=== PATIENT | male | born 1970 | race African-American/Black ===

== ENCOUNTER 2025-02-02 11:51 | Emergency (ER) | payer OTHER, SELFPAY ==
--- NOTE | 2025-02-02 12:09 | ED_ITS ---
HPI - General Adult General Chief complaint: Recheck/Abnormal Lab/Rx Stated complaint: abnormal labs Time Seen by Provider: 02/02/25 13:17 History of Present Illness ED Provider: Maren Bella NP HPI narrative: 54-year-old male medical history significant for diabetes non Friday hemodialysis, this week Friday, Friday, Friday (Holiday schedule), hypertension presents to the ED or abnormal laboratory tests at home. Patient reports that he had dialysis last week it was told that his blood count was low, at 5. He was told to come into the ED for recheck. He denies any chest pain or shortness of breath, abdominal pain, nausea or vomiting, urinary complaints. He does still make urine and denies any issues with this. No fever, chills, recent illnesses. Related Data Home Medications ?Medication ?Instructions ?Recorded ?Confirmed amlodipine 10 mg tablet 1 tab PO DAILY 07/19/21 0611/01 atorvastatin 20 mg tablet 20 tab PO BEDTIME 07/19/21 0 07/19/21 dulaglutide 1.5 mg/0.5 mL 1.5 mg subcut QWEEK 07/19/21 07/19/21 subcutaneous pen injector (Trulicity) empagliflozin 25 mg tablet 1 tab PO DAILY 07/19/2111/01 (Jardiance) flunisolide 25 mcg (0.025 %) nasal 2 spray intranasal DAILY 07/19/21 07/19/21 spray insulin glargine 100 unit/mL (3 20 unit subcut BEDTIME 07/19/21 07/19/21 mL) subcutaneous pen (Lantus Solostar U-100 Insulin) insulin lispro protamine-lispro ea subcut 07/19/21 100 unit/mL (50-50) subcutaneous pen (Humalog Mix 50-50 KwikPen) ondansetron HCl 4 mg tablet 4 mg PO Q8H PRN Nausea And Vomiting 07/19/21 07/19/21 spironolactone 100 mg tablet 1 tab PO DAILY 07/19/21 0 07/19/21 Allergies Allergy/AdvReac Type Severity Reaction Status Date / Time No Known Allergies Allergy Verified 02/02/25 12:12 Review of Systems 2 Review of Systems: ROS is otherwise negative unless mentioned in HPI. [facility] Past Medical History Medical History (Updated 02/02/25 @ 13:37 [facility] Cyclical vomiting CKD (chronic kidney disease) MAGALY (obstructive sleep apnea) DM type 2 (diabetes mellitus, type 2) HTN (hypertension) Surgical History (Updated 07/20/21 @ 09:18 by Jany Gee RN) Hx of eye surgery Status post repair of complex wound Physical Exam ED Exam Exam: Nursing notes and vital signs reviewed. Constitutional: Well-appearing, NAD. Alert. Oriented X3. Eyes: EOMI. ENT: Pharynx normal. Neck: Normal inspection. Neck supple. CVS: Normal heart rate and rhythm. Pulses normal. Respiratory: No respiratory distress. Breath sounds normal. Abdomen: Nondistended. Skin: Skin warm and dry. Normal skin color. Extremities: No lower extremity edema. Neuro: Oriented X 3. No motor deficit. Vital Signs: Vital Signs - 24 hr 02/02/25 12:10 Temperature 98 F Pulse Rate 87 Respiratory Rate 16 Blood Pressure 146/67 H Pulse Oximetry 98 Oxygen Delivery Method Room Air BMI result Body Mass Index 31.7 Course Course Course Narrative: This is a rapid medical exam performed by Hi Fu NP: Additional HPI, ROS, PE not included below will be deferred to primary provider. Patient is a 54y/o M with ESRD on dialysis M// referred by PCP for low H&H. States hgb usually around 8, doctor told him hgb was 5 on labs labs. Denies melena, hematochezia, dizziness or lightheadedness. No hx of requiring transfusion in the past. Plan: labs Medical Decision Making Medical Decision Making MDM Narrative: Upon my assessment, he appears well. I was able to evaluate him in the [facility] chair. He presented for laboratory check of his hemoglobin, as he was told last week that his hemoglobin was 5. He had dialysis this week yesterday (on Friday), and Friday. He typically follows a Friday, Friday, Friday schedule, but is on a holiday schedule this week, and will have dialysis Friday. His hemoglobin here is 8.7, hematocrit is 27.6. He tells me this is around his baseline. His creatinine however is elevated at 8.87, again expected to be high given the setting of CKD, and lack of dialysis as he would have been due tomorrow. There are no significant electrolyte disturbances, therefore there is no indication for any additional workup for management at this time. He has no acute medical complaints. We will proceed with discharge plan with follow up with Nephrology, given return precautions to the ED. Patient agreeable. Differential Diagnosis Differential Diagnoses: The differential diagnosis associated with the presentation includes Electrolyte disturbances, anemia, anemia due to CKD, laboratory air Admission/Observation Consideration of admission/observation: Escalation of care including admission/observation considered (Not indicated) Lab Data MDM Lab Attestation statement: I reviewed the patient's lab results. (Stable H&H.) 02/02/25 12:19 02/02/25 12:19 Labs: Lab Results 02/02/25 Range/Units 12:19 WBC 9.8 (4.8-10.8) X10*3/uL RBC 2.92 L (4.60-5.80) X10*6/uL Hgb 8.7 L (14.0-18.0) g/dl Hct 27.6 L (42.0-52.0) % MCV 94.5 (80.0-98.0) fL MCH 29.8 (27.0-33.0) pg MCHC 31.5 (31.0-36.0) g/dl RDW 16.3 H (11.0-16.0) % Plt Count 264 (160-400) X10*3/uL MPV 9.2 L (9.4-12.4) fL Immature Gran % (Auto) 1.5 H (0.0-0.4) % Neut % (Auto) 62.0 (45-73) % Lymph % (Auto) 24.7 (20-40) % [place] % (Auto) 9.7 (2-11) % Eos % (Auto) 1.5 (0-4) % Baso % (Auto) 0.6 (0-2) % Lymph # (Auto) 2.4 (1.2-4.9) X10*3/uL [place] # (Auto) 1.0 (0.1-1.2) X10*3/uL Eos # (Auto) 0.2 (0.0-0.4) X10*3/uL Baso # (Auto) 0.1 (0.0-0.2) X10*3/uL Abs Immat Gran (auto) 0.15 H (0.00-0.03) X10*3/uL Absolute Neuts (auto) 6.1 (2.0-8.3) x10*3/uL Absolute Nucleated RBC 0.040 H (0.0-0.012) X10*3/uL Nucleated RBC % (auto) 0.4 H (0.0-0.2) /100WBC Sodium 140 (135-145) mmol/L Potassium 4.7 (3.3-5.1) mmol/L Chloride 104 (96-108) mmol/L Carbon Dioxide 25 (22-29) mmol/L Anion Gap 16 (12-20) BUN 61 H (9-16) mg/dL Creatinine 8.87 H* (0.5-1.4) mg/dL Estim Creat Clear Calc 11.9 Estimated GFR 6 Random Glucose 94 (60-115) mg/dL Calcium 8.5 (8.4-10.2) mg/dL Magnesium 1.9 (1.6-2.6) mg/dL Total Bilirubin 0.4 (0.0-1.0) mg/dL AST 22 (5-37) U/L ALT 19 (0-40) U/L Alkaline Phosphatase 108 (39-117) U/L Total Protein 7.9 (6.5-8.0) g/dL Albumin 4.4 (3.5-5.0) g/dL Blood Type B Positive Antibody Screen NEGATIVE External Record Review External record reviewed: Outside ED record Chronic Conditions Patient?s care impacted by: Other (End-stage renal disease) Social Determinants Patient?s care significantly limited by Social Determinants of Health including: Problems related to primary support group Discharge Plan Discharge Clinical Impression: Encounter for laboratory test, Anemia Patient Disposition: Home, Self-Care Instructions: Anemia (ED) Additional Instructions: You were seen here today for evaluation of repeat laboratory testing. Your H&H here is 8.7, and 27.6. This is reassuring. This is not overly anemic, this appears to be your baseline anemia due to chronic kidney disease. Please follow up with your primary care provider within the next week, and your entry level truck driver outpatient. With any worsening complaints at any time, please seek re-evaluation in the ED. Prescriptions: No Action atorvastatin 20 mg tablet 20 tab PO BEDTIME ondansetron HCl [Zofran] 4 mg Tablet 4 mg PO Q8H PRN (Reason: Nausea And Vomiting) spironolactone 100 mg tablet 1 tab PO DAILY amlodipine 10 mg tablet 1 tab PO DAILY flunisolide 25 mcg (0.025 %) spray,non-aerosol 2 spray intranasal DAILY Humalog Mix 50-50 KwikPen 100 unit/mL (50-50) insulin pen subcut insulin glargine [Lantus Solostar U-100 Insulin] 100 unit/mL (3 mL) insulin pen 20 unit subcut BEDTIME Jardiance 25 mg tablet 1 tab PO DAILY Trulicity 1.5 mg/0.5 mL pen injector 1.5 mg subcut QWEEK [place]: [facility] [place]Provider Group, Family Practice] Print Language: Pashto
[2025-02-02 12:10] VITALS: BP 146/67; PULSE 87; RESP 16; TEMP 36.6; O2SAT 98; BMI 31.7
[2025-02-02 12:23] LABS: MANUAL DIFF FLAG NO
[2025-02-02 12:25] LABS: Hematocrit 27.6 % (42.0-52.0); Hemoglobin 8.7 g/dl (14.0-18.0); Imm Gran Abs Auto 0.15 X10*3/uL (0.00-0.03); Imm Gran Pct Auto 1.5 % (0.0-0.4); Lymphocytes Absolute Auto 2.4 X10*3/uL (1.2-4.9); Mean Corpuscular HGB Conc 31.5 g/dl (31.0-36.0); Mean Corpuscular Hemoglobin 29.8 pg (27.0-33.0); Mean Corpuscular Volume 94.5 fL (80.0-98.0); NRBC Abs Auto 0.040 X10*3/uL (0.0-0.012); NRBC Pct Auto 0.4 /100WBC (0.0-0.2); Platelet Count 264 X10*3/uL (160-400); Red Blood Count 2.92 X10*6/uL (4.60-5.80); White Blood Count 9.8 X10*3/uL (4.8-10.8)
[2025-02-02 12:47] LABS: Alanine Aminotransferase 19 U/L (0-40); Albumin Level 4.4 g/dL (3.5-5.0); Alkaline Phosphatase 108 U/L (39-117); Anion Gap 16 (12-20); Aspartate Amino Transferase 22 U/L (5-37); Blood Urea Nitrogen 61 mg/dL (9-16); Calcium 8.5 mg/dL (8.4-10.2); Carbon Dioxide 25 mmol/L (22-29); Chloride 104 mmol/L (96-108); Creatinine Clr Calc Pharmacy 11.9; Estimated Glomerular Filt Rate 6; Magnesium 1.9 mg/dL (1.6-2.6); Potassium 4.7 mmol/L (3.3-5.1); Sodium 140 mmol/L (135-145); Total Protein 7.9 g/dL (6.5-8.0)
--- OUTSIDE RECORDS SUMMARY | 2025-02-02 13:40 | XMS_ITS | Data Portability ---
Author Organization [facility], Main Office Address [address] [facility] [address] [place] [phone] Care Team Providers Care Perianesthesia Manager Name Role Phone JAMEE HERNANDEZ OTHER JAYA BROWN Primary Care Provider TRISTON MCQUEEN OTHER Assessment No assessment recorded. Plan of Treatment Reminders Order Date Submit Date Provider Last Modified By Organization Details Last Modified Time Details Appointments None recor ded. Lab hemog lobin A1C, finge rstic k 2015 016 [email or web address] [id number] In-Office Order, Internal Use Only DO Not Attach Compendium DO Not Attach Compendium, Do Not Delete/merge, [id number] 6 04:32:38 CMP, serum or plasm a 2015 016 DBA_PATCH_20 [id number] Not available 6 04:32:23 micro album in, urine 2015 016 DBA_PATCH_20 [id number] Not available 6 04:32:24 lipid panel , serum 2015 016 Not available 6 04:32:18 lipid panel , blood 2015 016 [email or web address] Not available 7 13:03:50 CMP, serum or plasm a 2015 016 [email or web address] Not available 7 13:03:50 lipid panel , serum 2015 016 [email or web address] Not available 7 10:04:22 hemog lobin A1C, finge rstic k 2015 016 DBA_PATCH_[email or web address] [id number] In-Office Order, Internal Use Only DO Not Attach Compendium DO Not Attach Compendium, Do Not Delete/merge, [id number] 6 04:32:07 Referral ortho pedic refer ral - L. foot injur y with 40 lbs weigh t. Minim al ROM, ? ligam ent injur y , ? misse d fract ure. 2015 016 DBA_PATCH_20 [id number] [facility] (Leeroy Hdez), [address], [place], [address], 6 04:32:[address]/di etiti an refer ral - Uncon troll ed diabe suzanne and Obesi ty. PT. needs to see nutri onist . 2015 016 DBA_PATCH_20 [id number] [facility], [address], [place], [address], 6 04:32:22 Procedures None recor ded. Surgeries None recor ded. Imaging None recor ded. Medication Orders Touje o SoloS tar U-300 Insul in 300 unit/ mL (1.5 mL) subcu taneo us pen 2015 016 DBA_PATCH_20 [id number] [facility], [address], [place], [id number], 6 04:32:37 lisin opril 10 mg table t 2015 016 DBA_PATCH_20 [id number] [facility] #52333, [address], [place], [id number], 6 04:32:39 lovas tatin 40 mg table t 2015 016 DBA_PATCH_20 [id number] [facility] #34781, [address], [place], [id number], 6 04:32:12 Touje o SoloS tar U-300 Insul in 300 unit/ mL (1.5 mL) subcu taneo us pen 2015 016 DBA_PATCH_20 [id number] [facility] #69076, [address], [place], [id number], 6 04:32:12 OneTo uch Verio test strip s 2015 016 DBA_PATCH_20 [id number] [facility] #85154, [address], [place], [id number], 6 04:32:09 Apidr a SoloS tar U-100 Insul in 100 unit/ mL [facility] 2015 016 [email or web address] [facility] #42805, [address], [place], [id number], 6 10:46:21 Touje o SoloS tar U-300 Insul in 300 unit/ mL (1.5 mL) subcu [facility] pen 2015 016 [email or web address] [facility] #76278, [address], [place], [id number], 6 16:43:52 Augme ntin 875 mg-12 5 mg table t 2015 016 [email or web address] [facility] #43931, [address], [place], [id number], 6 11:10:58 Patient Targets Encounter Date Encounter Id Patient Goals Patient Target Last Modified By Organization Details Last Modified Time 12/18/2015 [id number] Microalbumin/Cr eatinine Ratio yearly Not available Not available Not available Blood Pressure 140 / 90 Not available Not available Not available Ongoing of Hemoglobin A1C <7 Not available Not available Not available Hemoglobin A1C 2 times per yr Not available Not available Not available LDL Direct <100 Not available Not available Not available Ongoing of Cholesterol, LDL <100 Not available Not available Not available 12/18/2015 [id number] Pt advised and agrees to do moderate exercise (such as walking) for approximately 150 minutes per week; to decrease carbohydrate intake (25 % of total carbohydrates or less); and to monitor blood glucose as directed Will bring meter and/or readings to appointments. Patient preferences and goals incorporated in plan and updated/modifie d as needed to reflect progress toward goal. galilea Not available 12/18/2015 16:51:31 01/17/2016 [id number] Ongoing of Microalbumin/Cr eatinine Ratio yearly Not available Not available Not available Ongoing of Blood Pressure 140 / 90 Not available Not available Not available Ongoing of Hemoglobin A1C 2 times per yr Not available Not available Not available Ongoing of Hemoglobin A1C <7 Not available Not available Not available LDL Direct <100 Not available Not available Not available Ongoing of Cholesterol, LDL <100 Not available Not available Not available 01/17/2016 [id number] Pt advised and agrees to do moderate exercise (such as walking) for approximately 150 minutes per week; to decrease carbohydrate intake (25 % of total carbohydrates or less); and to monitor blood glucose as directed Will bring meter and/or readings to appointments. Patient preferences and goals incorporated in plan and updated/modifie d as needed to reflect progress toward goal. galilea Not available 01/17/2016 12:31:31 Patient Instructions Encounter Date Encounter Id Patient Instructions Last Modified By Organization Details Last Modified Time 06/09/2015 [id number] I have reviewed the note and agree with the assessment and plan of care. galilea Not available 06/09/2015 16:43:52 12/05/2015 [id number] high cholesterol: care instructions [email or web address] Not available 01/27/2016 04:32:05 I have reviewed the note and agree with the assessment and plan of care. wayne Not available 12/05/2015 13:50:59 12/18/2015 [id number] heart-healthy diet: care instructions [email or web address] Not available 01/27/2016 04:32:13 Medications (OTC, herbal therapies, supplements) reviewed and reconciled with patient and or caregiver, including potential side effects, drug interactions, instructions, and the consequences of not taking medication. Reviewed potential barriers to medication adherence, such as side effects from medication or cost of medication. I have reviewed the note and agree with the assessment and plan of care. galilea Not available 12/18/2015 16:52:09 12/25/2015 [id number] I have reviewed the note and agree with the assessment and plan of care. galilea Not available 12/25/2015 14:20:55 01/17/2016 [id number] Medications (OTC, herbal therapies, supplements) reviewed and reconciled with patient and or caregiver, including potential side effects, drug interactions, instructions, and the consequences of not taking medication. Reviewed potential barriers to medication adherence, such as side effects from medication or cost of medication. I have reviewed the note and agree with the assessment and plan of care. galilea Not available 01/17/2016 12:31:53 Reason for Referral Family Practitioner/dietitian Refer ral for Body mass index 30+ - obesity Uncontrolled diabetes and Obesity. PT. needs to see nutrionist. Referring Physician: Alejandra Damon, Internal Medicine, Encounter Date: 12/18/2015 Orthopedic Referral for [facility] of foot L. foot injury with 40 lbs weight. Minimal ROM, ? ligament injury , ? missed fracture. Referring Physician: Alejandra Damon, Internal Medicine, Encounter Date: 12/25/2015 Results Created Date Observation Date Name Description Value Unit Range Abnormal Flag Note LastModifiedBy Organization Detail LastModifiedTime 01/17/20 16 01/17/2016 hemog lobin A1C, fingluzma rstic k HA1C 10.4 % 4-6 Not Available In-Office Order Internal Use Only DO Not Attach Compendium DO Not Attach Compendium, Do Not Delete/merge, [id number] 01/17/2016 09:06:49 12/05/19 16 12/05/2015 hemog lobin A1C, fingluzma rstic k HA1C 12.2 % 4-6 Not Available In-Office Order Internal Use Only DO Not Attach Compendium DO Not Attach Compendium, Do Not Delete/merge, [id number] 12/05/2015 11:13:20 12/18/19 16 12/18/2015 CMP, serum or plasm a glucose 165 mg/dL (70-99 ) high Not Available [facility] (Centralized Electronic Ordering - All Locations) Patient Can Go To The Location Of Their Choice, 12/18/2015 17:18:50 12/18/19 16 12/18/2015 CMP, serum or plasm a BUN 10 mg/dL (6-20) Not Available [facility] (Centralized Electronic Ordering - All Locations) Patient Can Go To The Location Of Their Choice, 12/18/2015 17:18:50 12/18/19 16 12/18/2015 CMP, serum or plasm a creatinine 0.9 mg/dL (0.7-1 .2) Not Available [facility] (Centralized Electronic Ordering - All Locations) Patient Can Go To The Location Of Their Choice, 12/18/2015 17:18:50 12/18/1912/18/2015 CMP, serum or plasm a sodium 142 mmol/ L (133-1 45) Not Available [facility] (Centralized Electronic Ordering - All Locations) Patient Can Go To The Location Of Their Choice, 12/18/2015 17:18:50 12/18/1912/18/2015 CMP, serum or plasm a potassium 4.7 mmol/ L (3.6-5 .2) Not Available [facility] (Centralized Electronic Ordering - All Locations) Patient Can Go To The Location Of Their Choice, 12/18/2015 17:18:50 12/18/19 16 12/18/2015 CMP, serum or plasm a chloride 100 mmol/ L (98-10 7) Not Available [facility] (Centralized Electronic Ordering - All Locations) Patient Can Go To The Location Of Their Choice, 12/18/2015 17:18:50 12/18/19 16 12/18/2015 CMP, serum or plasm a bicarbonate 27 mmol/ L (22-29 ) Not Available [facility] (Centralized Electronic Ordering - All Locations) Patient Can Go To The Location Of Their Choice, 12/18/2015 17:18:50 12/18/1912/18/2015 CMP, serum or plasm a anion gap 15 (4-17) Not Available [facility] (Centralized Electronic Ordering - All Locations) Patient Can Go To The Location Of Their Choice, 12/18/2015 17:18:50 12/18/19 16 12/18/2015 CMP, serum or plasm a albumin 4.0 gm/dL (3.4-4 .8) Not Available [facility] (Centralized Electronic Ordering - All Locations) Patient Can Go To The Location Of Their Choice, 12/18/2015 17:18:50 12/18/1912/18/2015 CMP, serum or plasm a calcium 9.6 mg/dL (8.6-1 0.5) Not Available [facility] (Centralized Electronic Ordering - All Locations) Patient Can Go To The Location Of Their Choice, 12/18/2015 17:18:50 12/18/19 16 12/18/2015 CMP, serum or plasm a bilirubin,to keith 0.3 mg/dL (0-1.2 ) Not Available [facility] (Centralized Electronic Ordering - All Locations) Patient Can Go To The Location Of Their Choice, 12/18/2015 17:18:50 12/18/1912/18/2015 CMP, serum or plasm a total protein 7.2 gm/dL (6.2-8 .2) Not Available [facility] (Centralized Electronic Ordering - All Locations) Patient Can Go To The Location Of Their Choice, 12/18/2015 17:18:50 12/18/19 16 12/18/2015 CMP, serum or plasm a Ag ratio 1.3 Not Available [facility] (Centralized Electronic Ordering - All Locations) Patient Can Go To The Location Of Their Choice, 12/18/2015 17:18:50 12/18/19 16 12/18/2015 CMP, serum or plasm a AST 17 U/L (0-38) Not Available [facility] (Centralized Electronic Ordering - All Locations) Patient Can Go To The Location Of Their Choice, 12/18/2015 17:18:50 12/18/1912/18/2015 CMP, serum or plasm a alk phos 119 U/L (40-12 9) Not Available [facility] (Centralized Electronic Ordering - All Locations) Patient Can Go To The Location Of Their Choice, 12/18/2015 17:18:50 12/18/19 16 12/18/2015 CMP, serum or plasm a ALT 19 U/L (0-41) Not Available [facility] (Centralized Electronic Ordering - All Locations) Patient Can Go To The Location Of Their Choice, 12/18/2015 17:18:50 12/18/19 16 12/18/2015 CMP, serum or plasm a est GFR non 103 mL/mi n/1.7 3_M2 Effec tive Augus t 2015, [facility] have seng ed the equat ion used to calcu late creat inine based estim ated glome rular filtr ation rate (eGFR ) from the Modif icati on of Diet in Renal Disea se (MDRD ) to the Chron ic Kidne y Disea se Epide miolo gy Colla borat ion (CKD- EPI). With the use of CKD-E PI equat ion, eGFR value s over 60 mL/mi n/1.7 3 m2 are repor monica and eGFR is calcu lated for patie nts > EQ 18 years old. The CKD-E PI creat inine equat ion has not been valid ated in child kranthi (<18 years ), pregn ant women , in some racia l or ethni c subgr oups other than [facility] and Afric an Ameri cans. Not Available [facility] (Centralized Electronic Ordering - All Locations) Patient Can Go To The Location Of Their Choice, [id number] 12/18/2015 17:18:50 12/18/19 16 12/18/2015 CMP, serum or plasm a est GFR 119 mL/mi n/1.7 3_M2 Effec tive Augus t 2015, [facility], [facility] and [facility] have seng degroot the equat ion used to calcu late creat inine based estim ated glome rular filtr ation rate (eGFR ) from the Modif icati on of Diet in Renal Disea se (MDRD ) to the Chron ic Kidne y Disea se Epide miolo gy Colla borat ion (CKD- EPI). With the use of CKD-E PI equat ion, eGFR value s over 60 mL/mi n/1.7 3 m2 are repor moniac and eGFR is calcu lated for patie nts > EQ 18 years old. The CKD-E PI creat inine equat ion has not been valid ated in child kranthi (<18 years ), pregn ant women , in some racia l or ethni c subgr oups other than Gabriella cabrera and Afric an Andreaeri cans. Not Available [facility] (Centralized Electronic Ordering - All Locations) Patient Can Go To The Location Of Their Choice, [id number] 12/18/2015 17:18:50 12/18/19 16 12/18/2015 lipid panel , serum cholesterol, total 182 mg/dL (<200) Not Available [facility] (Centralized Electronic Ordering - All Locations) Patient Can Go To The Location Of Their Choice, [id number] 12/18/2015 17:18:51 12/18/19 16 12/18/2015 lipid panel , serum triglyceride 65 mg/dL (<150) Not Available [facility] (Centralized Electronic Ordering - All Locations) Patient Can Go To The Location Of Their Choice, [id number] 12/18/2015 17:18:51 12/18/19 16 12/18/2015 lipid panel , serum HDL chol 45 mg/dL (>39) Not Available [facility] (Centralized Electronic Ordering - All Locations) Patient Can Go To The Location Of Their Choice, [id number] 12/18/2015 17:18:51 12/18/19 16 12/18/2015 lipid panel , serum LDL cholesterol, calculated 124 mg/dL (0-130 ) Not Available [facility] (Centralized Electronic Ordering - All Locations) Patient Can Go To The Location Of Their Choice, [id number] 12/18/2015 17:18:51 12/18/19 16 12/18/2015 lipid panel , serum non HDL cholesterol (calc) 137 mg/dL (<160) Not Available [facility] (Centralized Electronic Ordering - All Locations) Patient Can Go To The Location Of Their Choice, [id number] 12/18/2015 17:18:51 12/18/19 16 12/18/2015 micro album in, urine micro-albumi n 301.3 mg/L (0-20) high Not Available [facility] (Centralized Electronic Ordering - All Locations) Patient Can Go To The Location Of Their Choice, [id number] 12/18/2015 19:05:06 12/18/19 16 12/18/2015 micro album in, urine malb/creat ratio 151.3 mg/gm (0-20) high Not Available [facility] (Centralized Electronic Ordering - All Locations) Patient Can Go To The Location Of Their Choice, [id number] 12/18/2015 19:05:06 12/18/19 16 12/18/2015 micro album in, urine urine creat for micro albumin 199.2 mg/dL Not Available [facility] (Centralized Electronic Ordering - All Locations) Patient Can Go To The Location Of Their Choice, [id number] 12/18/2015 19:05:06 12/25/19 16 12/14/2015 XR, foot, 3 or more view No observ ation record ed. [facility] [address], [place], [address], 12/27/2015 13:13:08 06/26/19 24 06/26/2023 inter venti onal radio logy perma nent dialy sis vijay ter place ment (PROC ) No observ ation record ed. [facility] [address] [place] [address], [place], [address], 06/27/2023 11:07:53 Result Notes None recorded. Problems Name Problem SNOMED Code Status Onset Date Resolution Date Notes Provider Name and Address Organization Details Recorded Time Type 2 diabetes mellitus 71873033 Completed 04/29/2014 Alejandra Damon PA-C [address] [facility] [address], [place], [address], [facility] 6 15:21:11 Body mass index 30+ - obesity 231876493 Active Alejandra Damon PA-C [address] [facility] [address], [place], [address], [facility] 6 15:21:12 Diabetic peripher al neuropat hy 540626010 Active Alejandra SCHILLING-Dina [address] 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 had transplan t OS Alejandra Damon PA-C [address] [facility] [address], [place], [address], [facility] 6 15:21:12 Flatulen ce symptom 638582202 Completed 12/18/2015 Bettina esquivel [facility] 6 10:29:49 Type 2 diabetes mellitus 81176659 Active Alejandra Damon PA-C [address], [facility] [place], [address], [facility] 6 15:21:11 Acute vomiting 56401059 Completed 12/18/2015 Bettina esquivel [facility] 6 10:29:36 Onychomy cosis 826255695 Active Alejandra Damon PA-C [address], [place], [address], [facility] 6 15:21:11 Neuropat hy due to diabetes mellitus 414429970 Active Alejandra Damon PA-C [address], [place], [address], [facility] 6 15:21:11 Hammer toe 709493662 Active Alejandra Damon PA-C [address], [facility] [place], [address], [facility] 6 15:21:12 Diarrhea 85111207 Completed 12/18/2015 Bettina esquivel [facility] 6 10:29:55 Microalb uminuric diabetic nephropa thy 450251036 Active Alejandra Damon PA-C [address], [place], [address], [facility] 6 15:21:11 Otitis media 86839990 Completed 12/18/2015 Bettina esquivel [facility] 6 10:30:00 Uncontro lled type 2 diabetes mellitus 228612550 Active Alejandra Damon PA-C [address], [place], [address], [facility] 6 10:04:54 Active or passive immuniza tion Completed 201208/24/2013 RECORDED 3 1:52PM BY JAYA BROWN MD, OFFICE VISIT Alejandranavya Damon [facility] [address] [facility] [address], [place], [address], [facility] 6 15:21:12 Active or passive immuniza tion Completed 201209/16/2013 RECORDED 3 1:52PM BY JAYA BROWN MD, OFFICE VISIT Alejandra Damon [address], [place], [address], [facility] 6 15:21:12 Active or passive immuniza tion Completed 201209/17/2013 RECORDED 3 1:52PM BY JAYA BROWN MD, OFFICE VISIT Alejandrayelena Damon [facility] [address] [place] [address] [address], [place], [address], [facility] 6 15:21:12 Adult health examinat ion Completed 201208/24/2013 IMPRESSIO N: WILL UPDATE IMMUNIZAT ION STATUS AND SCREEN BASED ON RISK FACTORS. REGULAR DENTAL CARE AND SEATBELT USE ADVISED. DISTRACTE D DRIVING DISCUSSED . NO INDICATIO N FOR COLON OR PROSTATE CANCER SCREENING .; RECORDED 3 4:23PM BY CHU BURGOS MA, ISSACATIO N/ADDENDU M Alejandra SCHILLING [address] [facility] [address], [place], [address], [facility] 6 15:21:12 Follow-u p encounte r Completed 201208/24/2013 RECORDED 3 4:23PM BY CHU BURGOS MA, ANNOTATIO N/ADDENDU Carmela Damon PA-C [address], [place], [address], [facility] 6 15:21:12 Adult health examinat ion Completed 201209/16/2013 IMPRESSIO N: WILL UPDATE IMMUNIZAT ION STATUS AND SCREEN BASED ON RISK FACTORS. REGULAR DENTAL CARE AND SEATBELT USE ADVISED. DISTRACTE D DRIVING DISCUSSED . NO INDICATIO N FOR COLON OR PROSTATE CANCER SCREENING .; RECORDED 3 4:23PM BY CHU BURGOS MA, BRIE N/ADDENDU Carmela Damon PA-C [address], [place], [address], [facility] 6 15:21:12 Follow-u p encounte r Completed 201209/16/2013 RECORDED 3 4:23PM BY CHU BURGOS MA, BRIE N/SAADIAENDU Carmela Damon PA-C [address], [place], [address], [facility] 6 15:21:12 Adult health examinat ion Completed 201209/17/2013 IMPRESSIO N: WILL UPDATE IMMUNIZAT ION STATUS AND SCREEN BASED ON RISK FACTORS. REGULAR DENTAL CARE AND SEATBELT USE ADVISED. DISTRACTE D DRIVING DISCUSSED . NO INDICATIO N FOR COLON OR PROSTATE CANCER SCREENING .; RECORDED 3 4:23PM BY CHU BURGOS MA, BRIE N/ADDENDU Carmela Schulzden PA-C [address], [place], [address], [facility] 6 15:21:12 Follow-u p encounte r Completed 201209/17/2013 RECORDED 3 4:23PM BY CHU BURGOS MA, DALEO N/ADDENDU Carmela Damon PA-C [address], [place], [address], [facility] 6 15:21:12 Uncontro lled type 2 diabetes mellitus 627789177 Completed 201208/24/2013 RECORDED 3 10:39AM BY NANNETTE SARABIA MA, DALEO N/ADDENDU Carmela Damon PA-C [address], [place], [address], [facility] 6 15:21:11 Uncontro lled type 2 diabetes mellitus 886088526 Completed 201209/16/2013 RECORDED 3 10:39AM BY NANNETTE SARABIA MA, BRIE N/ADDENDU Carmela Damon PA-C [address], [place], [address], [facility] 6 15:21:11 Uncontro lled type 2 diabetes mellitus 029143837 Completed 201209/17/2013 RECORDED 3 10:39AM BY NANNETTE SARABIA MA, BRIE N/SAADIAENDU Carmela SCHILLING-C [address], [place], [address], [facility] 6 15:21:11 Renewal of prescrip tion Completed 201308/24/2013 RECORDED 4 8:15AM BY NANNETTE SARABIA MA, DALEO N/ADDENDU Carmela Damon PA-C [address], [place], [address], [facility] 6 15:21:12 Patient status finding [id number] Completed 201308/24/2013 RECORDED 4 8:15AM BY NANNETTE SARABIA MA, BRIE N/ADDENDU Carmela Damon PA-C [address], [place], [address], [facility] 6 15:21:12 Immuniza tion refused Completed 201308/24/2013 RECORDED 4 8:15AM BY NANNETTE SARABIA MA, BRIE Ann/[facility] 6 10:29:42 Administ ration of diphther ia and tetanus vaccine Completed 201308/24/2013 RECORDED 4 8:15AM BY NANNETTE SARABIA MA, BRIE Ann/JEREL SCHILLING-C [address], [place], [address], [facility] 6 15:21:12 Renewal of prescrip tion Completed 201309/16/2013 RECORDED 4 8:15AM BY NANNETTE SARABIA MA, BRIE Ann/JEREL SCHILLING-C [address], [place], [address], [facility] 6 15:21:12 Administ ration of diphther ia and tetanus vaccine Completed 201309/16/2013 RECORDED 4 8:15AM BY NANNETTE SARABIA MA, BRIE Ann/JEREL SCHILLING-C [address], [place], [address], [facility] 6 15:21:12 Renewal of prescrip tion Completed 201309/17/2013 RECORDED 4 8:15AM BY NANNETTE SARABIA MA, BRIE Ann/JEREL SCHILLING-C [address], [place], [address], [facility] 6 15:21:12 Administ ration of diphther ia and tetanus vaccine Completed 201309/17/2013 RECORDED 4 8:15AM BY NANNETTE SARABIA MA, ANNOTATIO N/JEREL Damon [facility] [address] [facility] [address], [facility] [place], [address], [facility] 6 15:21:12 Type 2 diabetes mellitus without complica tion 611336603 Completed 201304/28/2014 RECORDED 4 9:57AM BY NANNETTE SARABIA MA, OFFICE VISIT Alejandra Damon [facility] [address] [facility] [address], [place], [address], [facility] 6 15:21:11 Disorder of nervous system due to type 2 diabetes mellitus 954275908 Active 2013 RECORDED 4 9:57AM BY NANNETTE SARABIA MA, OFFICE VISIT Alejandra SCHILLING [address] [facility] [address], [facility] [place], [address], [facility] 6 15:21:11 Diarrhea 24231137 Completed 201302/25/2014 IMPRESSIO N: PT ALREADY TRIED HOLDING METFORMIN (INADVERT ANTLY) AND NOTICED NO CHANGE IN SX'S. SEEMS TO HAVE SOME CORRELATI ON TO DAIRY INTAKE. HE WILL TRY ELIMINATI ON DIET/LACT AID PILLS AND CALL IF PERSISTAN T/WORSE.; RECORDED 4 10:41AM BY JAYA BROWN MD, OFFICE VISIT [facility] 10:29[facility] Impotenc e of organic origin Active 2013 IMPRESSIO N: MINIMAL SYMPTOMS IMPROVEME NT WITH VIAGRA, SEE IF DIFFERENT AGENT IS MORE EFFECTIVE .; RECORDED 4 10:42AM BY JAYA BROWN MD, OFFICE VISIT Alejandra Damon PA-C [address] [facility] [address], [place], [address], [facility] 6 15:21:12 Pure hypercho lesterol emia [id number] Active 2013 IMPRESSIO N: LDL NOT AT GOAL BUT MINIMALLY ELEVATED. WILL START LOW DOSE STATIN TO HELP REDUCE CV RISK.; RECORDED 4 10:44AM BY JAYA BROWN MD, OFFICE VISIT Alejandra Damon PA-C [address], [place], [address], [facility] 6 15:21:12 Patient status finding [id number] Completed 201304/28/2014 RECORDED 4 10:00AM BY NANNETTE SARABIA MA, OFFICE VISIT Alejandra Damon PA-C [address] [facility] [address], [place], [address], [facility] 6 15:21:12 Immuniza tion refused Completed 201312/18/2015 RECORDED 4 10:00AM BY NANNETTE ASRABIA MA, OFFICE VISIT Bettina Sahu [facility], [facility] 6 10:29:42 Primary open angle glaucoma 91352620 Active 2015 Jaya Brown MD [address], [place], [address], [facility] 6 13:32:57 Nuclear cataract 64918763 Active 2015 Jaya Brown MD [address], [place], [address], [facility] 6 13:33:24 Osteoart hritis of hip 570975186 Active 2016 Jaya Brown MD [address], [place], [address], [facility] 7 22:05:05 Problem Notes None recorded. Procedures Surgical History Date Name Laterality Status Provider Name and Address Organization Details Recorded Time Appendectomy completed Nannette Sarabia MA [facility] 02/25/2014 11:12:57 Corneal transplant completed Torin Ryan [facility] 04/29/2014 16:17:51 Imaging Results None recorded. Procedure Notes None recorded. Medical Equipment None Reported. Allergies No known drug allergies Medications Name Sig Start Date Stop Date Status Note LastModified by Organization Details LastModified Time amoxicill in 500 mg capsule 12/04 completed Not Available Not Available Not Available latanopro st 0.005 % eye drops active Not Available Not Available Not Available metformin 500 mg tablet take 1 tablet by mouth twice a day 07/14 completed dose titrated Not Available Not Available Not Available hydrocodo ne 5 mg-acetam inophen 325 mg tablet 12/04 completed Not Available Not Available Not Available lovastati n 40 mg tablet Take 1 tablet every day by oral route for 90 days. 2015 active Not Available Not Available Not Avai lable lovastati n 10 mg tablet Take 1 tablet every day by oral route as directed for 30 days. 12/17 completed Not Available Not Available Not Available sildenafi l 100 mg tablet DAILY NEEDED 05/17 completed RECORDED 05/18/19 14 10:27AM BY JAYA Ozuna MD, OFFICE VISIT; Not Available Not Available Not Available prednisol one acetate 1 % eye drops,shaquille pension Instill 1 drop every day by ophthalm ic route as directed for 21 days. active Not Available Not Available No t Available metoclopr amide 5 mg tablet Take 1 tablet 3 times a day by oral route as needed for 10 days. active Not Available Not Available No t Available metformin 1,000 mg tablet Take 1 tablet twice a day by oral route for 30 days. 01/13 completed diarrhea Not Available Not Available Not Available lisinopri l 10 mg tablet Take 1 tablet every day by oral route for 90 days. active Not Available Not Available No t Available Guaifenes in AC 10 mg-100 mg/5 mL oral liquid 12/04 completed Not Available Not Available Not Available omeprazol e 20 mg capsule,d elayed release Take 1 capsule by mouth daily 12/04 completed Not Available Not Available Not Available dorzolami de 22.3 mg-timolo l 6.8 mg/mL eye drops active Not Available Not Available Not Available ibuprofen 600 mg tablet active Not Available Not Available Not Available timolol maleate 0.5 % eye drops Apply 1 drop every day by ophthalm ic route as directed for 30 days. active Not Available Not Available No t Available ondansetr on 4 mg disintegr ating tablet EVERY FOUR HOURS, NEEDED active Not Available Not Available No t Available metformin ER 500 mg tablet,ex tended release 24 hr Take 2 tablets every day by oral route as directed for 30 days. 12/04 completed Not Available Not Available Not Available amoxicill in 875 mg-potass ium clavulana te 125 mg tablet Take 1 tablet every 12 hours by oral route for 7 days. 12/04 completed Not Available Not Available Not Available tobramyci n 0.3 %-dexamet hasone 0.1 % eye drops,shaquille pension Instill 1 drop every day by ophthalm ic route as directed for 12 days. 12/04 completed Not Available Not Available Not Available Humulin N Pen 100 unit/mL subcutane ous syringe AT BEDTIME, SEE TITRATIO N BELOW 2013 active RECORDED 05/18/19 14 10:27AM BY JAYA Ozuna MD, OFFICE VISIT;IN CREASE DOSE BY 5 UNITS EVERY 3 DAYS FOR FASTING BLOOD SUGARS GREATER THAN 120. Not Available Not Available Not Available tadalafil 20 mg tablet DAILY NEEDED 2013 active RECORDED 05/18/19 14 10:26AM BY JAYA Ozuna MD, OFFICE VISIT; Not Available Not Available Not Available Lactic Acid E 10 % topical cream active Not Available Not Available Not Available Aspirin EC take 1 tab daily po 2013 active RECORDED 05/18/19 14 10:27AM BY JAYA Ozuna MD, OFFICE VISIT; Not Available Not Available Not Available FreeStyle Lancets THREE TIMES DAILY, NEEDED 11/27 completed RECORDED 12/18/19 13 1:20PM BY CHU CASTREJON MA, MEDICATI ON AUTO-NATY CTIVATIO N;DX: 250.02 Not Available Not Available Not Available BD Ultra-Fin e Short Pen Needle 31 gauge x 5/16 active Not Available Not Available Not Available ProAir HFA 90 mcg/actua tion aerosol inhaler active Not Available Not Available Not Available metformin ER 500 mg 24 hr tablet,ex tended release (gastric retention ) TWO TIMES DAILY active RECORDED 09/22/19 13 2:08PM BY JAYA Ozuna MD, ANNOTATI ON/KEY DUM; Not Available Not Available Not Available Travatan Z 0.004 % eye drops Instill 1 drop every day by ophthalm ic route as directed for 30 days. 12/04 completed Not Available Not Available Not Available FreeStyle Lite Strips Take 1 strip 4 times a day by miscell. route as directed for 30 days. active Not Available Not Available No t Available FreeStyle Lite Strips THREE TIMES DAILY, NEEDED 2012 active RECORDED 12/22/19 13 1:27PM BY JAYA Ozuna MD, REFILL REQUEST; DX: 250.02 Not Available Not Available Not Available FreeStyle [place] Lite kit DAILY active Not Available Not Available Not Available Apidra SoloStar U-100 Insulin 100 unit/mL subcutane ous pen Inject 15 units 3 times a day by subcutan eous route for 90 days. 01/16 completed Not Available Not Available Not Available OneTouch Delica Lancets 33 gauge Take 1 each 4 times a day by miscell. route as directed for 25 days. active Not Available Not Available No t Available BD Ultra-Fin e Mamie Pen Needle 32 gauge x 5/32 Take 1 needle 4 times a day by miscell. route as directed for 25 days. active Not Available Not Available No t Available Humulin N NPH U-100 Insulin KwikPen 100 unit/mL (3 mL) subcutane ous Inject 15 units twice a day by sub-q route as directed for 90 days. 12/04 completed Not Available Not Available Not Available Toujeo SoloStar U-300 Insulin 300 unit/mL (1.5 mL) subcutane ous pen 60 u daily active Not Available Not Available No t Available Humalog KwikPen U-200 Insulin 200 unit/mL (3 mL) subcutane ous Inject 20 units 3 times a day by subcutan eous route for 90 days. active Not Available Not Available No t Available Vitals Date Recorded Body weight Body mass index (BMI) Body height Oxygen saturation Body temperature Heart rate Systolic And Diastolic Provider Name and Address Organization Details Last Updated DateTime 6 267323. 050881 g 33.5 kg/m2 174.625 cm 98 % 98.5 [degF] 94 /min 135/85 mm[Hg] Bettina Sahu [facility] 6 10:48:25 Date Recorded Body height Body weight Body mass index (BMI) Heart rate Oxygen saturation Body temperature Systolic And Diastolic Provider Name and Address Organization Details Last Updated DateTime 6 174.625 cm 618605. 83 g 35.3 kg/m2 89 /min 99 % 98.2 [degF] 128/81 mm[Hg] Corinna Joshua [facility] 6 11:08:56 Date Recorded Body height Body weight Body mass index (BMI) Body temperature Oxygen saturation Heart rate Systolic And Diastolic Provider Name and Address Organization Details Last Updated DateTime 6 174.625 cm 217770. 03 g 36.8 kg/m2 97.9 [degF] 97 % 89 /min 133/89 mm[Hg] Bettina Rockwell Raheem [facility] 6 09:29:38 Date Recorded Body height Body weight Body mass index (BMI) Body temperature Oxygen saturation Heart rate Systolic And Diastolic Provider Name and Address Organization Details Last Updated DateTime 6 174.63 cm 394807. 03 g 36.8 kg/m2 98.3 [degF] 95 % 99 /min 137/86 mm[Hg] [facility]ina [facility] 6 10:09:50 Date Recorded Body height Body weight Body mass index (BMI) Body temperature Oxygen saturation Heart rate Systolic And Diastolic Provider Name and Address Organization Details Last Updated DateTime 6 174.63 cm 693405. 51 g 36.1 kg/m2 97.5 [degF] 96 % 93 /min 156/97 mm[Hg] Bettina Rockwell [facility] 6 09:08:28 Social History Question Answer Notes LastModified by Organizat ion Details LastModified Time Tobacco Smoking Status Never Smoker Not Available [employer] 12/14/2019 03:36:40 What Is Your Level Of Caffeine Consumption? None [id number] Information not available 12/14/2019 What Type Of Diet Are You Following? REGULAR [id number] Information not available 12/14/2019 Live Alone Or With Others? With Others [email or web address] Information not available 04/29/2014 How Many Children Do You Have? 2 [id number] Information not available 12/14/2019 Sex: Unknown Functional Status Question Answer Note LastModified by Organization D etails LastModified Time What is your level of alcohol consumption? None [id number] Information not available 12/14/2019 Are you currently employed? No [id number] Information not available 12/14/2019 What is your exercise level? Moderate [id number] Information not available 12/14/2019 Mental Status None recorded. Family History Relationship Description Onset Age of this Age Resolved Age Notes LastModified by Organization Details LastModified Time Mother Diabetes mellitus [email or web address] Not available 10:49:59 Medical History Condition Response Coronary Artery Disease N Other N Gout N Kidney Stones N Blood Diseases N Hyperthyroidism N Breast Cancer N mrsa exposure N COPD N Depression N Lung Disease N Hypothyroidism N Defects or Inherited Disease N Developmental or Behavioral Disorders N Breast Problem N Anesthesia Complications N Headaches/Migraines N Varicose Veins N Anxiety Disorder N Muscle, Joint, or Bone Problems N Obesity N Vision or Eye Problems N Arthritis N Head Injury/Concussion N Polyps N Infertility N Mental Disorder N Congenital Anomalies N Acid Reflux (GERD) N Cancer N Stroke N ADHD N Endometriosis N High Cholesterol Y Liver Disease N Fibromyalgia N Headaches N Kidney Disease N Heart Problems N Ear or Hearing Problems N Hospitalizations N Thyroid Problems N GI Problems N Developmental Delay N Acne N Skin Problems N Eating Disorder N Anemia N Constipation N Bladder Problems N Mental Illness N Ovarian Cancer N Diabetes Y Bedwetting N Blood Transfusions N Seizures/Epilepsy N Heart Problems/Murmur N Tuberculosis N AIDS/HIV N Congestive Heart Failure (CHF) N Eczema N Diverticulitis N Abuse/Domestic Violence N Allergies N Asthma N Reflux/GERD N Hepatitis N Heart Disease N Pulmonary Embolism N Hypertension N Osteoporosis N Chicken Pox N Autism Spectrum Disorder (ASD) N Immunizations Vaccine Type Date Status Note Provider Nam e and Address Organization Details Recorded Time Td (adult), 2 Lf tetanus toxoid, preservative free, adsorbed 1 completed Not Available [facility] 08/24[facility]2013 13:43:55 Tdap 3 completed Not Available [facility] 08/24/2013 13:43:55 pneumococcal polysaccharide PPV23 5 completed Not Available [facility] 02/27/2019 02:21:42 Past Encounters Encounter ID Performer Location Encounter Start Date Encounter Closed Date Diagnosis/Indication Diagnosis SNOMED-CT Code Diagnosis ICD10 Code Diagnosis IMO Codes Diagnosis Note [id number] autoEComm erce [address] [facility] [place] [address] 09/21/2012 00:00:00 [id number] autoEComm erce [address] [facility] [place] [address] 11/17/2012 00:00:00 [id number] autoEComm erce [address] [facility] [place] [address] 12/21/2012 00:00:00 [id number] autoEComm erce [address] [facility] [place] [address] 05/17/2013 00:00:00 [id number] Jaya Brown MD Main Office [address] [facility] [address] [place] [address] 02/25/2014 11:06:42 02/25/2014 12:08:56 Type 2 diabetes mellitus 75106003 Back on regimen which led to good control in the past. Will reassess numbers. Optho exam utd. Pure hypercholesterolemia 362649470 Will reassess and titrate statin dose to goal LDL <100. Administra tion of pneumococcal vaccine 71089022 [id number] MARIANO Mcbride Main Office [address] [facility] [address] [place] [address] 04/29/2014 09:05:22 04/29/2014 11:15:55 Adult health examination 874294784 Body mass index 30+ - obesity 112652076 Disorder o f nervous system due to type 2 diabetes mellitus 142590849 will recheck his a1c in 1 month. hopefully will see improvemen t from his a1c of 14 off of meds. Impotence of organic origin 237208207 Pure hypercholesterolemia 873621776 Diabetic p eripheral neuropathy 180850090 based on exam only. no pain. podiatry to assess his shoe wear and reduce any risks he may have for complicati ons Flatulence symptom 809092856 trial avoidance of lactose and take lactaid when taking in lactose. try gas-x. also can do a probiotic such as align. if still symptomati c at 2 month f/u, can be reassessed . [id number] Jaya rBown MD Main Office [address] [place] [address] 06/29/2014 11:23:46 06/29/2014 12:15:01 Diabetic peripheral neuropathy 256268512 Pure hypercholesterolemia 042581579 Will reassess and titrate statin dose to goal LDL <100. Flatulence symptom 757910485 Stable on simethicon e and with limiting lactose. Pt states that this symptoms was present even before taking metformin. [id number] MARIANO Bauer Main Office [address] [place] [address] 10/18/2014 12:47:29 10/18/2014 13:20:44 Pre-surgery evaluation 942652083 Low risk for corneal transplant surgery, EKG normal, no blood work necessary, no further work-up necessary. Patient will stop aspirin today, he may resume the day after surgery unless otherwise instructed by Dr. Martinez. Type 2 maria alejandra betes mellitus 51457926 Blood sugars well controlled currently around 120, his last A1C was 12.1 in June, he will have his repeat drawn today. Disorder o f nervous system due to type 2 diabetes mellitus 313727314 [place] 85746833 Right eye, scheduled for corneal transplant right eye with Dr. Martinez 10/26/14 [id number] Jaya Brown MD Main Office [address] [facility] [address] [facility] [place] [address] 01/13/2015 11:26:02 01/13/2015 12:28:00 Pure hypercholesterolemia 596546002 E78.0 Will reassess and titrate statin dose to maintain goal LDL <100. Type 2 maria alejandra betes mellitus 70107755 E11.9 Back on regimen which led to good control in the past, but metformin may be affording diarrhea. Will reassess numbers. Optho exam utd. Diarrhea 08288613 R19.7 Will see if decreasing metformin dose and switching to ER formulatio n mitigate diarrhea. Advised to take med with food. If persistent /worse will refer to GI. [id number] Alejandra Damon PA-C Main Office [address] [facility] [address] [facility] [place] [address] 04/21/2015 12:53:36 04/21/2015 13:59:43 Disorder of nervous system due to type 2 diabetes mellitus 462999254 E11.40 Total time spent teaching and coordinati ng care 45 min. Basic pathophysi ology of type II DM was reviewed. Pt. was instructed on use of One Touch Verio meter and advised to test glucose at home QID; before each main meal and at HS. Goal for am fasting is 80-130, goal for postprandi al glucose is under 180. 1999 kira ADA diet was reviewed and sample menues given to pt,. Pt. was advised to walk daily as he is for atleast 1 hr. See ophthalmol ogist yearly. Meds: D/c Humulin N> Start Toujeo at 35 u daily. Start Apidra SoloStar at 10 u before each main meal. insulin injections were demonstrat ed. PT. shows competence and confidence in injection. Diabetic p eripheral neuropathy 791574221 E11.40 F/u with the folder tier every 3 m. [id number] Alejandra Damon PA-C Main Office [address] [place] [address] 05/05/2015 10:02:25 05/05/2015 11:00:41 Disorder of nervous system due to type 2 diabetes mellitus 036731558 E11.40 Hyperglyce shannan. Increase Toujeo to 45 u daily. Increase Apidra to 25 u TID and titrate up by 2 u every 3 days until premeal readings are under 200s all. Test glucose before meals and at HS. F/u 2 weeks. [id number] Alejandra Damon PA-C Main Office [address] [facility] [address] [facility] [place] [address] 06/09/2015 10:40:21 06/09/2015 11:11:06 Otitis media 63794021 H66.91 Acute R. Otitis Media. Start Augmentin 875-125 BID with food for 7-10 days. F/u at 10 days. OTC Sudafed 60 mg q 6 hrs fro decongesti on and Motrin for pain and inflammati on. Uncontroll ed type 2 diabetes mellitus 685337341 E11.65 Continue TID glucose monitoring and return in 10 days with log for f/u. Continue current insulins. [id number] Alejandra Damon PA-C Main Office [address] [address] 12/05/2015 10:58:38 12/05/2015 11:52:20 Uncontrolled type 2 diabetes mellitus 243547528 E11.65 Hyperglyce shannan and uncontroll ed Type II DM due to noncomplia nce to diet , exercise and medical appointmen ts. Pt. is advised to restart glucose monitoring before each main meal and at HS. Increase Toujeo to 47 u daily and Apidra to 20 u TID and use premeal. Lower total calories and portion size and start exercise activity. Return in 10 days. Pure hypercholesterolemia 966979689 E78.00 restart statin now. Recheck lipids in 6 weeks. Follow low fat diet . WEight loss as discussed. Disorder o f nervous system due to type 2 diabetes mellitus 608767437 E11.40 F/u with the folder tier . Consider Gabapentin . Noncomplia nce with therapeutic regimen 835224945 Z91.19 [id number] Alejandra Damon PA-C Main Office [address] [address] 12/18/2015 09:20:26 12/18/2015 10:10:09 Uncontrolled type 2 diabetes mellitus 039695711 E11.65 Increase Toujeo to 52 u daily. Increase Apidra to 20 u TID. HYpoglycem ia management reviewed. Test glucose 3 times per day. REturn in 4-6 weeks . Diabetic p eripheral neuropathy 101443128 E11.40 F/u with the folder tier every 3 m. Microalbum inuric diabetic nephropathy 202300107 E11.21 Repeat microalbum in. Pt. will need to be started on ACEI if microalbum inuria. Hyperlipidemia 26723028 E78.5 Repeat fasting lipids. Continue low fat diet. Body mass index 30+ - obesity 766237402 Z68.36 [id number] Alejandra Damon PA-C Main Office [address] [facility] [address] [place] [address] 12/25/2015 10:03:29 12/25/2015 10:56:35 Injury of foot 823008306 S99.922A Obtain XRAy results from urgent care. Pt. will be scheduled to see an orthopedis t urgently. Continue LINDSAY wrapping, ice , elevation. Take Ibuprofen 600 mg TID with food. [id number] Alejandra Nelson TREVIÑO Main Office [address] [facility] [address] [place] [address] 01/17/2016 09:03:27 01/17/2016 09:58:40 Disorder of nervous system due to type 2 diabetes mellitus 261859420 E11.40 F/u with the folder tier . Consider Gabapentin . Microalbum inuric diabetic nephropathy 831537329 E11.21 Start Lisinopril at 10 mg daily. Reassess in 6 weeks. Renal diso rder due to type 2 diabetes mellitus 055882170 E11.22 Renal functions assessed recently and are normal. BP will be managed with start of ACEI and repeat microalbum in in 6 weeks.Incr ease Toujeo to 55 u daily. HUmalog lower to 15 u premeal if glucose is 130 or less, otherwise 20 u. Continue working on diet nad weight loss. Hypoglycemia 631935250 E 16.2 insulin adjusted Health Concerns Section Related Observation LastModified by Organization Detai ls LastModified Time None Recorded Concern Status LastModified by Organization Details LastModified Time None Recorded Advance Directives Directive None Recorded Payers Insurance Date Sequence Insurance Name Policy Number Policy Whitehead Covered Member ID Whitehead Member ID Guarantor Name 12/10/2017 1 SAI (PPO) [id number] Rico Murphy [id number] Rico Murphy Notes Date Note Type Note Provider Name and Address Organization Details Recorded Time 06/09/2015 text/html ROS as noted in the HPI 45 year old male with uncontrolled Type II DM c/o 3 week onset of cold symptoms initially and gradual onset of R. ear discomfort and now pain and decreased hearing. NO fever or chills. Some sinus congestion. Glucose readings are somewhat improved , but pt. missed his diabetes f/u. PT. was switched from Humulin N to Toujeo 37 u daily and Apidra 12 u TID. Jaya Brown MD [address] [facility] [address], [place], [address], [facility] 06/09/2015 16:43:54 12/05/2015 text/html Diabetes F/URepo rted by PatientHPIFor context, patient reportshome blood sugar range high,not seeing eye doctor yearly, andnot taking aspirin dailybut reportsno side effects from medications(last alejandra for diabetes was in april. pt. had elevated a1c. lost insurance after and stopped testing. has eye exam scheduled on december 12 adn podiatry alejandra. tomorrow. reports bilateral tingling in toes and balls of both feet. r. arm tingling w/o neck issues and tingling in fingertips. has loose bowels .). For associated symptoms, patient reportsincreased thirst,increased appetite,increased urination,blurred vision, andnumbness of feetbut reportsno weight gain,no weight loss,no dizziness,no sweats,no headaches,no confusion, andno calluses on feet. For review finger sticks, patient reportsfasting: ___,post breakfast: up to 170,post lunch: up to 180, andpost dinner: up to 180(no glucose records, pt. is not monitoring his glucose at home. misplaced meter, did not have insurance for a while.).HgA1c today is 12.2% . Overall diabetic control worsened since last seen in April. Weight is is up by 12 lbs since May. Diet --- not following diabetic portion control. Denies drinking soda or juice. Denies exercising regularly.Meds: stopped his Lovastatin. Toujeo 37 u daily, Apidra 12 u TID , but uses after the meal. BP is stable.ROS as noted in the HPI Carson Matt MD [address] [facility] [address], [place], [address], [facility] 12/07/2015 09:05:08 12/18/2015 text/html Diabetes F/URepo rted by PatientHPIFor context, patient reportshome blood sugar range highandnot checking feet regularlybut reportsseeing eye doctor regularly,taking aspirin daily, andnot missing doses of medications(much improved overall glucose control. pt. is holding her metfromin due to off and on diarrhea and stomach upset for the past 10 days. also has epigastric). For associated symptoms, patient reportsweight gain (? 10 lbs)but reportsno weight loss,no dizziness,no sweats,no headaches,no confusion,no increased thirst,no increased appetite,no increased urination,no blurred vision,no numbness of feet, andno calluses on feet. For review finger sticks, patient reportsfastin-240 87-160,post breakfast: up to 170,pre lunch: 150-200,post lunch: up to 180,pre dinner: 110-216, andpost dinner: up to 180(150-268 after lunch).HgA1c was 12.2% in November. Overall diabetic control is slightly improved since the last visit. Weight is up since the last visit. Diet --- admittedly not so good as of yet. exercies more since the last visit.Meds: Toujeo SoloStar 47 u daily, Apidra 17 u TID. NO random hypoglycemia was documented. Lowest reading was 102 prebreakfast. Pt. reports less pain in his feet since the last visit. Sees return agent airport regularly.ROS as noted in the HPI Jaya Brown MD [address], [id number], [facility] 12/18/2015 16:52:13 12/25/2015 text/html ROS as noted in the HPI 45 year old diabetic male c/o L. foot pain and swelling. Pt. dropped 40 lb weight on the top of his foot 14 days ago. Pt. went to [facility] . Was told XRAy was negative for fractures. Recommend to do RICE and wrap with LINDSAY bandages. PT. reports he was doing all that was advised to him , but has sign. amount of pain and swelling, little ROM . DEnies numbness, tingling, cold extremity. Have not been taking Ibuprofen 600 mg TID as prescribed at urgent care. Jaya Brown MD [address], [id number], [facility] [place] 12/25/2015 14:21:11 01/17/2016 text/html Diabetes F/URepo rted by PatientHPIFor context, patient reportshome blood sugar range high,home blood sugar range low (below 70), andmissing doses of medicationbut reportsseeing eye doctor regularly,checking feet regularly, andtaking aspirin daily(pt. had several hypoglycemia reactions mostly after breakfast and lunch if took humalog at 20 and premeal readings were under 130.pt. missed his toujeo on occasion and had high readings in 200s in the am.). For review finger sticks, patient reportsfastin-216,post breakfast: up to 170,pre lunch: 60-240,post lunch: up to 180,pre dinner: 109-227, andpost dinner: up to 180(after break, one reading down to 54, post lunch and supper up to 215.). For associated symptoms, patient reportsno weight gain,no weight loss,no dizziness,no sweats,no headaches,no confusion,no increased thirst,no increased appetite,no increased urination,no blurred vision,no numbness of feet, andno calluses on feet.HgA1c today is improved at 10.4% from 12.2% in November. Weight is down by 5 lbs. Diet --- somewhat improved, attempts at low calories/low carb. Exercises 3-4 times weekly-- inconsistent.Meds: Toujeo 52 u daily. HUmalog U-200 20 u TID.BP---elevated today more so than on prior visits. Pt. has h/o microalbuminuria. His creatinine and GFR are normal.Pt. has stable peripheral neuropathy in both feet which is reportedly better since his diabetic control started improving.EYes- no diabetic retinopathy , but has uncontrolled Primary OPen Angle Glaucoma OU followed by ophthalm.ROS as noted in the HPI Jenifer esquivel [place] - [facility] 01/18/2016 12:10:47
--- OUTSIDE RECORDS SUMMARY | 2025-02-02 13:40 | XMS_ITS | Clinical Summary ---
Author Organization [facility] Address [address] [address] Phone Care Team Providers Care Retail Sales Professional Name Role Phone Lorne Bone MD Primary Care Provider [phone] Allergies No known active allergies Medications amLODIPine (NORVASC) 5 MG tabletIndicatio ns:Hypertension Take 1 tablet (5 mg total) by mouth 1 (one) time each day 90 tablet 3 06/24/2023 Active calcitriol (Rocaltrol) 0.25 MCG capsuleIndicati ons:Stage 5 chronic kidney disease (HCC),Hypertens ion Take 1 capsule (0.25 mcg total) by mouth 1 (one) time each day 90 capsule 3 06/24/2023 Active calcium carbonate (TUMS) 500 MG chewable tablet Chew 1 tablet 1 (one) time each day Active Hospital, Clinic, or Other Facility Administered Medication Ordered Dose Route Frequency Start Date End Date Status Epoetin Jeferson-epbx solution 40,000 UnitsIndications:Chronic kidney disease, not otherwise specified,Anemia in chronic kidney disease 57030 Units IJ Once 06/24/2023 Active Active Problems Problem Noted Date Diagnosed Date Hemodialysis status 07/08/2023 Anemia in chronic kidney disease 06/24/2023 Overview (06/24/2023): Target Hgb 10-12 Assessment & Plan (06/24/2023 1:11 PM EDT): Epo replacement 40,000U of Retacrit given today Hgb low at 7.0 Will check iron studies, had been WNL as of 12/2022 Will return in 2 weeks for another Retacrit dose Hyperkalemia 06/24/2023 Assessment & Plan (06/24/2023 1:12 PM EDT): K mildly elevated at 5.4 Follow low K diet Resume Lokelma as directed QD Stage 5 chronic kidney disease 10/30/2022 Overview (06/24/2023): Related to diabetic nephropathy Avoid Nephrotoxins Not on LINDSAY/ARB given severe renal function Optimize BP and DM control Assessment & Plan (07/08/2023 4:20 PM EDT): Most recent creat worsened to 9.88, eGFR 6 as of 06/24/23 K was 5.4/borderline sodium level 145 Had a critical low Ca level of 6.2 Hgb low at 7.0 Initiated in-Center hemodialysis at [facility] M/W/F 1 week ago via [facility] Has an appointment with Vascular this week for AVF evaluation Referral made for Transplant, pt reassured should be hearing from them soon Assessment & Plan (06/24/2023 1:07 PM EDT): Creat is up to 9.7 currently w/ eGFR 6 from a Creat 4-6 as of 10/2022 No uremic symptoms aside from some reported low appetite, No Edema Had AVF initial evaluation in the Fall 2022, referred back [facility]EEK for AVF creation Referred for kidney transplant evaluation K 5.4, Lokelma resumed, avoid high K foods - reviewed these with patient Type 2 diabetes mellitus wit h diabetic chronic kidney disease 10/30/2022 Assessment & Plan (06/24/2023 1:12 PM EDT): Off all insulin/DM medication Check HgbA1c 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 (08/09/2022): 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 History of appendectomy 08/09/2022 Type 2 diabetes mellitus 02/21/2021 Onychomycosis 02/21/2021 Neuropathy due to diabetes mellitus 02/21/2021 Microalbuminuric diabetic nephropathy 02/21/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 Hypertension 02/21/2021 Overview (06/24/2023): Follow dietary restricted NA intake Avoid NSAIDs/OTC Decongestant medications Target BP 120/80 Assessment & Plan (06/24/2023 1:10 PM EDT): Blood pressure uncontrolled of all medications currently Resume Amlodipine at 5 mg QD No Edema Will follow closely, consider Amlodipine increase to 10 mg QD at next visit in a few weeks if BP still elevated Hammer toe 02/21/2021 Body mass index 30+ - obesity 02/21/2021 Osteoarthritis of hip 09/17/2016 Primary open angle glaucoma 01/07/2016 Nuclear cataract 01/07/2016 Pure hypercholesterolemia 05/17/2013 Impotence of organic origin 05/17/2013 Resolved Problems Problem Noted Date Diagnosed Date Resolved Date Chronic kidney disease, stage 4 (severe) 07/03/2022 10/30/2022 Chronic kidney disease, stage 2 (mild) 04/18/2021 10/30/2022 Encounters Date Type Department Care Team Description 02/01/2025 Treatment [facility] [place] [id number] [address] Syed Reyez MD End stage renal disease; Dependence on renal dialysis 01/17/2025 Treatment [facility] [place] [id number] [address] Syed Reyez MD End stage renal disease; Dependence on renal dialysis 01/12/2025 Orders Only [facility] [place] [phone] [address] Syed Reyez MD 01/12/2025 Treatment [facility] [address] [address] Syed Reyez MD End stage renal disease; Dependence on renal dialysis 12/27/2024 Treatment [facility] [address] [place] [phone] Syed Reyez MD End stage renal disease; Dependence on renal dialysis 12/24/2024 Treatment [facility] [address] [phone] Syed Reyez MD End stage renal disease; Dependence on renal dialysis 12/20/2024 Treatment [facility] [address] [phone] Syed Reyez MD End stage renal disease; Dependence on renal dialysis 12/20/2024 Treatment [facility] [place] [address] [facility] [address] [place] [address] Syed Reyez MD End stage renal disease; Dependence on renal dialysis; Type 2 diabetes mellitus with diabetic chronic kidney disease 12/13/2024 Treatment [facility] [address] [phone] Syed Reyez MD End stage renal disease; Dependence on renal dialysis 12/06/2024 Treatment [facility] [address] [address] Syed Reyez MD End stage renal disease; Dependence on renal dialysis 11/29/2024 Treatment [facility] [address] [phone] Syed Reyez MD End stage renal disease; Dependence on renal dialysis 11/22/2024 Treatment [facility] [address] [phone] Syed Reyez MD End stage renal disease; Dependence on renal dialysis 11/19/2024 Treatment [facility] [address] [phone] Syed Reyez MD End stage renal disease; Dependence on renal dialysis 11/08/2024 Treatment [facility] [address] [facility] [address] [place] [address] Syed Reyez MD End stage renal disease; Dependence on renal dialysis 11/05/2024 Treatment [facility] [address] [phone] Syed Reyez MD End stage renal disease; Dependence on renal dialysis from Last 3 Months Immunizations Immunization Administration Dates Next Due Influenza, Unspecified 11/26/2007 Pfizer SARS-COV-2 09/09/2020 Pneumococcal Polysaccharide 08/31/2018, 5 Td 08/19/2017,10/02/2000 Tdap 12/21/2012,10/02/2000 Family History Medical History Relation Comments Diabetes Father Kidney disease Father Diabetes Mother Cancer Sister Relation Status Comments Father Mother Sister Social History Tobacco Use Types Packs/Day Years Used Date Smoking Tobacco: Never Smokeless Tobacco: Never Tobacco Cessation:Counseling Given: Not Answered Alcohol Use Standard Drinks/Week Comments Not Currently 0 (1 standard drink = 0.6 oz pur e alcohol) Sex and Gender Information Value Date Recorded Sex Assigned at Not on file Legal Sex Male 9:27 AM EST Gender Identity Not on file Sexual Orientation Not on file Last Filed Vital Signs Vital Sign Reading Time Taken Comments Blood Pressure 138/74 07/08/2023 10:45 AM EDT Pulse 83 07/08/2023 10:45 AM EDT Temperature - - Respiratory Rate 20 12/16/2022 11:36 AM EST Oxygen Saturation 99% 10/30/2022 3:48 PM EDT Inhaled Oxygen Concentration - - Weight 99.3 kg (219 lb) 07/08/2023 10:45 AM EDT Height 182.9 cm (6') 07/11/2021 3:03 PM EDT Body Mass Index 29.7 07/11/2021 3:03 PM EDT Plan of Treatment Health Maintenance Due Date Last Done Comments Hepatitis B Vaccine (1 of 5 - Risk Dialysis 4-dose series) 1990 Colorectal Cancer Screening: Annual FOBT 05/07/2019 Colorectal Cancer Screening: Colonoscopy 05/07/2019 Colorectal Cancer Screening: Sigmoidoscopy 05/07/2019 Pneumococcal Vaccine: 50+ Ye ars (3 of 3 - PCV) 09/01/2019 08/31/2018, 03/22/2015, 02/25/2014 Diabetes: Ophthalmology Exam 12/21/2020 Diabetes: Pedal Pulse Checked 12/21/2020 Diabetes: Sensory Foot Exam 12/21/2020 Diabetes: Visual Foot Exam 12/21/2020 Diabetes: Hemoglobin A1C 09/24/2023 024, 04/18/2021, 02/21/2021 Influenza Vaccine (#1) 2024 11/26/2007 Pneumococcal Vaccine: Peds ( 0 to 5 Years) and At-Risk Patients (6 to 49 Years) Discontinued 08/31/2018, 03/22/2015, 02/25/2014 Procedures Procedure Name Priority Date/Time Associated Diagnosis Comments HEMOGLOBIN Routine 01/30/2025 3:00 AM EST HEMOGLOBIN Routine 01/26/2025 3:00 AM EST TRANSFERRIN SATURATION Routine 3:00 AM EST LIH (HC) Routine 01/12/2025 3:00 AM EST MAGNESIUM Routine 01/12/2025 3:00 AM EST LACTATE DEHYDROGENASE Routine 01/12/2025 3:00 AM EST CREATININE, SERUM Routine 01/12/2025 3:0 0 AM EST PROTEIN, TOTAL, SERUM Routine 01/12/2025 3:00 AM EST GLUCOSE, RANDOM Routine 01/12/2025 3:00 AM EST ELECTROLYTE PANEL Routine 01/12/2025 3:0 0 AM EST AST Routine 01/12/2025 3:00 AM EST BUN/CREATININE RATIO Routine 01/12/2025 3:00 AM EST BILIRUBIN, TOTAL Routine 01/12/2025 3:00 AM EST ALT Routine 01/12/2025 3:00 AM EST CALCIUM PHOSPHORUS PRODUCT, ADJUSTED (HC) Routine 01/12/2025 3:00 AM EST ALKALINE PHOSPHATASE Routine 01/12/2025 3:00 AM EST FERRITIN Routine 01/12/2025 3:00 AM EST KT/V NATURAL LOG, URR (HC) Routine 01/12/2025 3:00 AM EST CBC AND DIFFERENTIAL Routine 01/12/2025 3:00 AM EST POTASSIUM Routine 01/04/2025 3:00 AM EST LIH (HC) Routine 01/04/2025 3:00 AM EST COLLECTION DATE (HC) Routine 01/04/2025 3:00 AM EST HEMOGLOBIN Routine 12/31/2024 3:00 AM EST HEMOGLOBIN Routine 12/29/2024 3:00 AM EST LIH (HC) Routine 12/29/2024 3:00 AM EST POTASSIUM Routine 12/29/2024 3:00 AM EST LIH (HC) Routine 12/27/2024 3:00 AM EST PHOSPHATE ( PHOSPHORUS) Routine 12/27/2024 3:00 AM EST POTASSIUM Routine 12/22/2024 3:00 AM EST LIH (HC) Routine 12/22/2024 3:00 AM EST CALCIUM, ADJUSTED W ALBUMIN Routine 12/20/2024 3:00 AM EST LIH (HC) Routine 12/20/2024 3:00 AM EST HEMOGLOBIN Routine 12/17/2024 3:00 AM EST LIH (HC) Routine 12/17/2024 3:00 AM EST KT/V NATURAL LOG, URR (HC) Routine 12/17/2024 3:00 AM EST FERRITIN Routine 12/15/2024 3:00 AM EST TRANSFERRIN SATURATION Routine 3:00 AM EST PROTEIN, TOTAL, SERUM Routine 12/15/2024 3:00 AM EST MAGNESIUM Routine 12/15/2024 3:00 AM EST ELECTROLYTE PANEL Routine 12/15/2024 3:0 0 AM EST LIH (HC) Routine 12/15/2024 3:00 AM EST GLUCOSE, RANDOM Routine 12/15/2024 3:00 AM EST LACTATE DEHYDROGENASE Routine 12/15/2024 3:00 AM EST CREATININE, SERUM Routine 12/15/2024 3:0 0 AM EST BILIRUBIN, TOTAL Routine 12/15/2024 3:00 AM EST BUN/CREATININE RATIO Routine 12/15/2024 3:00 AM EST AST Routine 12/15/2024 3:00 AM EST ALT Routine 12/15/2024 3:00 AM EST CALCIUM PHOSPHORUS PRODUCT, ADJUSTED (HC) Routine 12/15/2024 3:00 AM EST ALKALINE PHOSPHATASE Routine 12/15/2024 3:00 AM EST KT/V NATURAL LOG, URR (HC) Routine 12/15/2024 3:00 AM EST CBC AND DIFFERENTIAL Routine 12/15/2024 3:00 AM EST HEMOGLOBIN Routine 12/06/2024 3:00 AM EDT HEMOGLOBIN Routine 12/01/2024 3:00 AM EDT HEMOGLOBIN Routine 11/29/2024 3:00 AM EDT HEMOGLOBIN Routine 11/24/2024 3:00 AM EDT FERRITIN Routine 11/15/2024 3:00 AM EDT TRANSFERRIN SATURATION Routine 3:00 AM EDT PROTEIN, TOTAL, SERUM Routine 11/15/2024 3:00 AM EDT LIPID PANEL Routine 11/15/2024 3:00 AM EDT MAGNESIUM Routine 11/15/2024 3:00 AM EDT ELECTROLYTE PANEL Routine 11/15/2024 3:0 0 AM EDT LACTATE DEHYDROGENASE Routine 11/15/2024 3:00 AM EDT GLUCOSE, RANDOM Routine 11/15/2024 3:00 AM EDT LIH (HC) Routine 11/15/2024 3:00 AM EDT CREATININE, SERUM Routine 11/15/2024 3:0 0 AM EDT BUN/CREATININE RATIO Routine 11/15/2024 3:00 AM EDT BILIRUBIN, TOTAL Routine 11/15/2024 3:00 AM EDT ALT Routine 11/15/2024 3:00 AM EDT AST Routine 11/15/2024 3:00 AM EDT CALCIUM PHOSPHORUS PRODUCT, ADJUSTED (HC) Routine 11/15/2024 3:00 AM EDT ALKALINE PHOSPHATASE Routine 11/15/2024 3:00 AM EDT PTH, INTACT Routine 11/15/2024 3:00 AM EDT KT/V NATURAL LOG, URR (HC) Routine 11/15/2024 3:00 AM EDT POORLY SPUN TUBE (HC) Routine 11/10/2024 3:00 AM EDT CBC AND DIFFERENTIAL Routine 11/10/2024 3:00 AM EDT KT/V NATURAL LOG, URR (HC) Routine 11/10/2024 3:00 AM EDT PHOSPHATE ( PHOSPHORUS) Routine 11/03/2024 3:00 AM EDT LIH (HC) Routine 11/03/2024 3:00 AM EDT CALCIUM, ADJUSTED W ALBUMIN Routine 11/03/2024 3:00 AM EDT HEMOGLOBIN A1C Routine 06/24/2023 11:58 AM EDT Stage 5 chronic kidney disease (HCC) Hypertension Type 2 diabetes mellitus with diabetic chronic kidney disease (HCC) from Last 3 Months or Most Recently Relevant to Health Maintenance Results * (ABNORMAL) Hemoglobin (01/30/2025 3:00 AM EST) Only the most recent of9 resultswithin the time period is included. Hgb 5.5(LL) 13.7 - 17.5 g/dL [facility] Comment: ALERT: Result verified by repeat analysis with no evidence of clotting detected. Consider other preanalytical factors such as sample dilution/contamination as a possible cause. Clinical correlation with redraw recommended if not consistent with patient history. Hemoglobin x 3 16.5(L) 41.1 - 52.5 g/dL [facility] 01/30/2025 3:00 AM EST 02/01/2025 1:08 PM EST Syed Reyez MD LAB BLOOD ORDERABLES Final Re sult [facility] [address] [place] [address] * LIH (01/12/2025 3:00 AM EST) Only the most recent of10 resultswithin the time period is included. Pathologist [facility] Lipemia Normal Normal [facility] Icterus Normal Normal [facility] Hemolysis Normal Normal [facility] 01/12/2025 3:00 AM EST 01/13/2025 5:50 PM EST us Syed Reyez MD LAB [id number] SOLICITED RESULTS Final Result Performing Organization Address City/[facility]/ZIP Co de Phone Number [facility] [address] [place] [address] * (ABNORMAL) Kt/V Natural Log, URR (01/12/2025 3:00 AM EST) Only the most recent of5 resultswithin the time period is included. Pathologist [facility] Treatment Time 247 min [facility] Pre-Weight, lb 106.6 kg [facility] Post-Weight, lb 104.3 kg [facility] Ultrafiltration Rate 5 <=13 mL/kg/hr [facility] Comment: Recommend achieving Ultrafiltration Rate (UFR) <=10 mL/kg/hr References: Ankush SOLOMON et al. Kidney Int. 2010; 79(2):250-257 BUN 60(H) 7 - 25 mg/dL [facility] BUN Post Dialysis 16 7 - 25 mg/dL [facility] UREA REDUCTION RATIO (%) 73 >=65 % [facility] Kt/V Natural Log 1.52 >=1.2 [facility] 01/12/2025 3:00 AM EST 01/13/2025 5:50 PM EST Syed eRyez MD LAB [id number] SOLICITED RESULTS Final Result Performing Organization Address [facility] de Phone Number [facility] [address] [place] [address] * (ABNORMAL) Calcium Phosphorus Product, Adjusted (01/12/2025 3:00 AM EST) Only the most recent of3 resultswithin the time period is included. Albumin 4.1 3.6 - 5.4 g/dL [facility] Calcium 8.0(L) 8.6 - 10.3 mg/dL [facility] Phosphorus, Serum 4.9 2.5 - 5.0 mg/dL [facility] Ca*PO4 39.2 <55.0 mg2/dL2 [facility] Calcium, Adjusted Total 8.0(L) 8.6 - 10.3 mg/dL [facility] CA*PO4 CORRCTD 39.2 <55.0 mg2/dL2 [facility] 01/12/2025 3:00 AM EST 01/13/2025 5:50 PM EST Syed Reyez MD LAB [id number] SOLICITED RESULTS Final Result Performing Organization Address [facility] de Phone Number [facility] [address] [place] [address] * BUN/CREATININE RATIO (01/12/2025 3:00 AM EST) Only the most recent of3 resultswithin the time period is included. BUN/Creatinine Ratio 6.4 <=23.0 [facility] 01/12/2025 3:00 AM EST 01/13/2025 5:50 PM EST Syed Reyez MD LAB [id number] SOLICITED RESULTS Final Result Performing Organization Address [facility] Co de Phone Number [facility] [address] [place] [address] * (ABNORMAL) TSAT (01/12/2025 3:00 AM EST) Only the most recent of3 resultswithin the time period is included. Pathologist [facility] Iron 110 65 - 175 ug/dL [facility] Transferrin 162(L) 215 - 365 mg/dL [facility] TIBC 227 211 - 406 ug/dL [facility] Iron Saturation (TSat) 49 22 - 52 % [facility] 01/12/2025 3:00 AM EST 01/13/2025 5:50 PM EST Syed Reyez MD LAB BLOOD ORDERABLES Final Re sult Performing Organization Address [facility] de Phone Number [facility] [address] [place] [address] * (ABNORMAL) CBC and Differential (01/12/2025 3:00 AM EST) Only the most recent of3 resultswithin the time period is included. Pathologist [facility] DIFFERENTIAL MANUAL, 2 Not Indicated [facility] White Blood Cells 7.6 4.2 - 9.1 K/uL [facility] RBC 2.82(L) 4.63 - 6.08 M/uL [facility] Hgb 8.2(L) 13.7 - 17.5 g/dL [facility] Hemoglobin x 3 24.6(L) 41.1 - 52.5 g/dL [facility] Hematocrit 26.1(L) 40.1 - 51.0 % [facility] MCV 92.6(H) 79.0 - 92.2 fL [facility] MCH 29.1 25.7 - 32.2 pg [facility] MCHC 31.4(L) 32.3 - 36.5 g/dL [facility] RDW 15.8(H) 11.6 - 14.4 % [facility] Platelets 289 163 - 337 K/uL [facility] MPV 10.3 9.1 - 13.0 fL [facility] Neutrophils Relative 59.0 34.0 - 67.9 % [facility] Lymphocytes Relative 27.6 21.8 - 53.1 % [facility] Monocytes 9.5 5.3 - 12.2 % [facility] Eosinophils Relative 2.8 0.8 - 7.0 % [facility] Basophils Relative 0.4 0.2 - 1.2 % [facility] Immature Granulocytes 0.7 0.0 - 1.0 % [facility] 01/12/2025 3:00 AM EST 01/13/2025 5:55 PM EST Syed Reyez MD LAB BLOOD ORDERABLES Final Re sult Performing Organization Address [facility] Co de Phone Number [facility] [address] [place] [address] * ALT (01/12/2025 3:00 AM EST) Only the most recent of3 resultswithin the time period is included. ALT (SGPT) 13 10 - 49 U/L [facility] 01/12/2025 3:00 AM EST 01/13/2025 5:50 PM EST Syed Reyez MD LAB BLOOD ORDERABLES Final Re sult Performing Organization Address [facility] de Phone Number [facility] [address] [place] [address] * AST (01/12/2025 3:00 AM EST) Only the most recent of3 resultswithin the time period is included. AST (SGOT) 13 <34 U/L [facility] 01/12/2025 3:00 AM EST 01/13/2025 5:50 PM EST Syed Reyez MD LAB BLOOD ORDERABLES Final Re sult Performing Organization Address [facility] de Phone Number [facility] [address] [place] [address] * Protein, total (01/12/2025 3:00 AM EST) Only the most recent of3 resultswithin the time period is included. Total Protein 7.4 6.4 - 8.9 g/dL [facility] 01/12/2025 3:00 AM EST 01/13/2025 5:50 PM EST Syed Reyez MD LAB BLOOD ORDERABLES Final Re sult Performing Organization Address [facility] de Phone Number [facility] [address] [place] [address] * (ABNORMAL) Alkaline phosphatase (01/12/2025 3:00 AM EST) Only the most recent of3 resultswithin the time period is included. Alkaline Phosphatase 131(H) 46 - 116 U/L [facility] 01/12/2025 3:00 AM EST 01/13/2025 5:50 PM EST Syed Reyez MD LAB BLOOD ORDERABLES Final Re sult Performing Organization Address [facility] de Phone Number [facility] [address] [place] [address] * Magnesium (01/12/2025 3:00 AM EST) Only the most recent of3 resultswithin the time period is included. Magnesium 2.0 1.9 - 2.7 mg/dL [facility] 01/12/2025 3:00 AM EST 01/13/2025 5:50 PM EST Syed Reyez MD LAB BLOOD ORDERABLES Final Re sult Performing Organization Address [facility] de Phone Number [facility] [address] [place] [address] * Lactate dehydrogenase (01/12/2025 3:00 AM EST) Only the most recent of3 resultswithin the time period is included. LDH 219 120 - 246 U/L [facility] 01/12/2025 3:00 AM EST 01/13/2025 5:50 PM EST Syed Reyez MD LAB BLOOD ORDERABLES Final Re sult Performing Organization Address [facility] de Phone Number [facility] [address] [place] [address] * (ABNORMAL) Glucose, random (01/12/2025 3:00 AM EST) Only the most recent of3 resultswithin the time period is included. Glucose 122(H) 70 - 99 mg/dL [facility] Comment: ADA guidelines outline the following fasting glucose ranges: Normal: <100 Prediabetes: 100-125 Diabetes: >125 01/12/2025 3:00 AM EST 01/13/2025 5:50 PM EST us Syed Reyez MD LAB BLOOD ORDERABLES Final Re sult Performing Organization Address [facility] de Phone Number [facility] [address] [place] [address] * (ABNORMAL) Ferritin (01/12/2025 3:00 AM EST) Only the most recent of3 resultswithin the time period is included. Ferritin 1,209(H) 22 - 322 ng/mL [facility] 01/12/2025 3:00 AM EST 01/13/2025 5:50 PM EST us Syed Reyez MD LAB BLOOD ORDERABLES Final Re sult Performing Organization Address [facility] de Phone Number [facility] [address] [place] [address] * (ABNORMAL) Creatinine, serum (01/12/2025 3:00 AM EST) Only the most recent of3 resultswithin the time period is included. Creatinine 9.34(H) 0.70 - 1.30 mg/dL [facility] 01/12/2025 3:00 AM EST 01/13/2025 5:50 PM EST us Syed Reyez MD LAB BLOOD ORDERABLES Final Re sult Performing Organization Address [facility] de Phone Number [facility] [address] [place] [address] * (ABNORMAL) Bilirubin, total (01/12/2025 3:00 AM EST) Only the most recent of3 resultswithin the time period is included. Total Bilirubin 0.2(L) 0.3 - 1.2 mg/dL [facility] 01/12/2025 3:00 AM EST 01/13/2025 5:50 PM EST Syed Reyez MD LAB BLOOD ORDERABLES Final Re sult Performing Organization Address [facility] de Phone Number [facility] [address] [place] [address] * Electrolyte panel (01/12/2025 3:00 AM EST) Only the most recent of3 resultswithin the time period is included. Sodium 138 136 - 145 mEq/L [facility] Potassium 4.6 3.4 - 5.0 mEq/L [facility] Chloride 103 98 - 107 mEq/L [facility] Bicarbonate (CO2) 24 21 - 31 mEq/L [facility] Anion Gap 11 3 - 14 mEq/L [facility] 01/12/2025 3:00 AM EST 01/13/2025 5:50 PM EST Syed Reyez MD LAB BLOOD ORDERABLES Final Re sult Performing Organization Address [facility] de Phone Number [facility] [address] [place] [address] * Collection Date (01/04/2025 3:00 AM EST) Collection Date See Comment [facility] Comment: Patient sample received may exceed specimen stability, based on the collection date electronically provided. When reviewing patient results, verify collection information and consider specimen stability before acting on any critical or panic results. 01/04/2025 3:00 AM EST Syed Reyez MD LAB [id number] SOLICITED RESULTS Final Result Performing Organization Address City/[facility]/ZIP Co de Phone Number [facility] [address] [place] [address] * Potassium (01/04/2025 3:00 AM EST) Only the most recent of3 resultswithin the time period is included. Potassium 4.8 3.4 - 5.0 mEq/L [facility] 01/04/2025 3:00 AM EST 01/07/2025 1:10 PM EST Syed Reyez MD LAB BLOOD ORDERABLES Final Re sult Performing Organization Address [facility] de Phone Number [facility] [address] [place] [address] * Phosphorus (12/27/2024 3:00 AM EST) Only the most recent of2 resultswithin the time period is included. Phosphorus, Serum 4.5 2.5 - 5.0 mg/dL [facility] 12/27/2024 3:00 AM EST 12/28/2024 1:37 PM EST Syed Reyez MD LAB BLOOD ORDERABLES Final Re sult Performing Organization Address [facility] Phone Number [facility] [address] [place] [address] * (ABNORMAL) Calcium, Adjusted w Albumin (12/20/2024 3:00 AM EST) Only the most recent of2 resultswithin the time period is included. Calcium 8.2(L) 8.6 - 10.3 mg/dL [facility] Albumin 4.3 3.6 - 5.4 g/dL [facility] Comment:Verified by repeat a nalysis Calcium, Adjusted Total 8.2(L) 8.6 - 10.3 mg/dL [facility] 12/20/2024 3:00 AM EST 12/21/2024 3:22 PM EST Syed Reyez MD LAB BLOOD ORDERABLES Final Re sult Performing Organization Address [facility] de Phone Number [facility] [address] [place] [address] * PTH, Intact (11/15/2024 3:00 AM EDT) Pathologist [facility] PTH, Intact 557 160 - 721 pg/mL [facility] Comment: Suggested (KDIGO) ESRD maintenance range is two to nine times the upper normal limit (80.1 pg/mL) for the laboratory. 11/15/2024 3:00 AM EDT 11/17/2024 11:30 AM EDT Syed Reyez MD LAB BLOOD ORDERABLES Final Re sult Performing Organization Address [facility] de Phone Number [facility] [address] [place] [address] * (ABNORMAL) Lipid panel (11/15/2024 3:00 AM EDT) Pathologist [facility] Cholesterol 145 mg/dL [facility] Comment: Optimal: <200 Borderline: 200-239 High Risk: >239 Triglycerides 73 mg/dL [facility] Comment: Optimal: <150 Borderline: 150-200 High Risk: >200 HDL 33(L) mg/dL [facility] Comment: Optimal: >59 Borderline: 40-59 High Risk: <40 LDL-Calc 97 mg/dL [facility] Comment: Optimal: <100 Borderline: 100-159 High Risk: >159 VLDL Cholesterol Emmett 15 mg/dL [facility] Comment: Optimal: <30 Borderline: 30-40 High Risk: >40 Chol/HDL Ratio 4.4(H) [facility] Comment: Optimal: <3.3 High Risk: >6.2 11/15/2024 3:00 AM EDT 11/17/2024 11:30 AM EDT Syed Reyez MD LAB BLOOD ORDERABLES Final Re sult Performing Organization Address [facility] de Phone Number [facility] [address] [place] [address] * Poorly Spun Tube (11/10/2024 3:00 AM EDT) Pathologist [facility] Poorly Spun TUBE [place] [facility] Comment:Received poorly cent rifuged specimen. Unable to perform testing. 11/10/2024 3:00 AM EDT us Syed Reyez MD LAB [id number] SOLICITED RESULTS Final Result [facility] [address] [place] [address] * Hemoglobin A1c (06/24/2023 11:58 AM EDT) Hemoglobin A1C 5.3 4.8 - 5.6 % See order comments Comment: Prediabetes: 5.7 - 6.4 Diabetes: >6.4 Glycemic control for adults with diabetes: <7.0 Blood specimen (specimen) Venous blood / Unknown 06/24/2023 11:58 AM EDT 06/24/2023 Narrative [facility] - 06/25/2023 6:08 AM EDT Performed at: 01 - [facility] [address] [id number] Skein Washer: Maria Teresa Disla MD, Phone: [phone] us Ita PÉREZ LAB BLOOD ORDERABLES Final Result [facility] See order comments [place] [address] from Last 3 Months or Most Recently Relevant to Health Maintenance Insurance Medicaid [place] Medicare Medicare Medicaid [place] Care Teams Retail Sales Professional Relationship Specialty Start Date End Date Lorne Bone MD [address] [place] [address] PCP - General Internal Medicine 07/08/23
--- OUTSIDE RECORDS SUMMARY | 2025-02-02 13:40 | XMS_ITS | Encounter Summary ---
Author Organization [facility]. Address [address] [address] Phone Care Team Providers Care Computer Specialist Name Role Phone Lorne Bone MD Primary Care Provider [phone] Encounter Details Date Type Department Care Team (Late st Contact Info) Description 01/17/2025 Treatment [facility] [address] [address] Kari Frias MD [address] [address] End stage renal disease; Dependence on renal dialysis Social History Tobacco Use Types Packs/Day Years Used Date Smoking Tobacco: Never Smokeless Tobacco: Never Alcohol Use Standard Drinks/Week Comments Not Currently 0 (1 standard drink = 0.6 oz pur e alcohol) Sex and Gender Information Value Date Recorded Sex Assigned at Not on file Legal Sex Male 9:27 AM EST Gender Identity Not on file Sexual Orientation Not on file documented as of this encounter Miscellaneous Notes * Dialysis Note - Kari Frias MD - 01/17/2025 12:00 AM EST BASIC NOTE Patient: Reji Murphy : 1970 Note Author: KARI FRIAS MD Service Date: 01/17/2025 This patient was personally seen [id number] for a basic visit as part of routine monthly dialysis care for end stage renal disease. Attending Senior Architect: KARI FRIAS Dialysis Location: [facility] Schedule: Shift: 1 HOME MEDICATIONS Current Nicole Echavarria Outpatient Medications amLODIPine (NORVASC) 5 MG tablet Take 1 tablet (5 mg total) by mouth 1 (one) time each day Start Date: 06/24/2023 calcitriol (Rocaltrol) 0.25 MCG capsule Take 1 capsule (0.25 mcg total) by mouth 1 (one) time each day Start Date: 06/24/2023 calcium carbonate (TUMS) 500 MG chewable tablet Chew 1 tablet 1 (one) time each day Start Date: Current Nicole Echavarria Allergies Allergen: No Known Allergies ADEQUACY ASSESSMENT Kt/V, Natural Log 1.52 (01/12/25) 1.43 (12/17/24) 0.46 (12/15/24) UREA REDUCTION RATIO (%) 73 (01/12/25) 71 (12/17/24) 30 (12/15/24) BUN 60 (01/12/25) 49 (12/17/24) 23 (12/15/24) BUN Post Dialysis 16 (01/12/25) 14 (12/17/24) 16 (12/15/24) Creatinine 9.34 (01/12/25) 4.20 (12/15/24) 10.62 (11/15/24) Bicarbonate (CO2) 24 (01/12/25) 29 (12/15/24) 20 (11/15/24) Sodium 138 (01/12/25) 141 (12/15/24) 140 (11/15/24) ANEMIA ASSESSMENT Hgb 5.5 (01/30/25) 8.5 (01/26/25) 8.2 (01/12/25) Iron Saturation (TSat) 49 (01/12/25) 57 (12/15/24) 87 (11/15/24) Ferritin 1,209 (01/12/25) 622 (12/15/24) 1,323 (11/15/24) Iron 110 (01/12/25) 76 (12/15/24) 170 (11/15/24) TIBC 227 (01/12/25) 133 (12/15/24) 195 (11/15/24) MCV 92.6 (01/12/25) 94.9 (12/15/24) 94.1 (11/10/24) Platelets 289 (01/12/25) 175 (12/15/24) 298 (11/10/24) BMM ASSESSMENT Calcium, Adjusted Total 8.0 01/12/25 8.2 12/20/24 7.9 12/15/24 Calcium 8.0 01/12/25 8.2 12/20/24 6.8 12/15/24 Phosphorus, Serum 4.9 01/12/25 4.5 12/27/24 2.4 12/15/24 Ca*PO4 39.2 01/12/25 16.3 12/15/24 54.0 11/15/24 PTH, Intact 557 11/15/24 495 08/11/24 446 05/12/24 Magnesium 2.0 01/12/25 1.7 12/15/24 2.0 11/15/24 Alkaline Phosphatase 131 01/12/25 56 12/15/24 95 11/15/24 NUTRITION ASSESSMENT Albumin 4.1 01/12/25 4.3 12/20/24 2.6 12/15/24 Potassium 4.6 01/12/25 4.8 01/04/25 5.0 12/29/24 Glucose 122 01/12/25 103 12/15/24 75 11/15/24 ADDITIONAL LABS White Blood Cells 7.6 (01/12/25) 5.1 (12/15/24) 6.8 (11/10/24) Cholesterol 145 (11/15/24) 162 (08/11/24) 131 (05/12/24) HDL 33 (11/15/24) 39 (08/11/24) 34 (05/12/24) LDL-Calc 97 (11/15/24) 108 (08/11/24) 69 (05/12/24) Triglycerides 73 (11/15/24) 76 (08/11/24) 139 (05/12/24) Hep B Surface Antibody 20 (02/18/24) Uric Acid 5.9 (02/18/24) Chol/HDL Ratio 4.4 (11/15/24) 4.2 (08/11/24) 3.9 (05/12/24) ALT (SGPT) 13 (01/12/25) 8 (12/15/24) 19 (11/15/24) AST (SGOT) 13 (01/12/25) ?8 (12/15/24) 16 (11/15/24) ADDITIONAL COMMENT COMMENTS: 04/16/24 doing ok Avf still needs revision Refer for PD edu 04/26/24 cont avf probs, eval poss PDl 05/03/24 not interested in pD, avf revision schedule 05/07/24 s/p avf revison 05/12/24 no new issues 05/14/24 Stable 05/24/24 AVF revised--hope to use by early 06/02/24 stable 06/07/24 stable 06/14/24 using avg 06/21/24 stable 07/02/24 stable, using AVG 07/07/24 doing ok 07/12/24 stable 07/19/24 stable 07/26/24 doing well 08/02/24 avf high flows--schedule fistulogram 01/14/24 stable 01/21/24 doingbok 01/28/24 doing well, still needs a func avf 02/12/23 doing ok 03/15/24 stable 03/22/24 doing well, avf revision 03/31/24 stable 04/09/24 no new issues, avf revision scheduled 10/17/23 stable 10/24/23 no new issues 11/05/23 stable 11/19/23 doing ok, still working in avf maturation 11/26/23 stable 12/05/23 doing ok 12/19/23 stable 12/26/23 doing ok 12/29/23 stable 01/06/24 doing ok 01/19/24 stable 03/05/24 doing well 03/12/24 stable 08/16/24 stable 08/25/24 doing ok 09/06/24: no new issues 09/13/24 stable 09/20/24 doing ok 09/27/24 same issue 10/04/24 stable 10/18/24 stable 11/08/24 doing well 11/19/24 doing well 11/1324 stable 11/29/24 stable 12/06/24 no new issues 12/13/24 stable 12/20/24 no issues 12/24/24 stable 12/27/24 doing well 01/12/25 stable 01/17/25 stable 02/01/25 doing ok Signed by: KARI FRIAS MD on 02/02/2025 at 12:13:06 AM Transcribed by: KARI FRIAS MD on 02/02/2025 at 12:13:06 AM documented in this encounter Plan of Treatment Not on file documented as of this encounter Visit Diagnoses Diagnosis End stage renal disease Dependence on renal dialysis documented in this encounter Care Teams Computer Specialist Relationship Specialty Start Date End Date Lorne Bone MD [address] [place] [address] PCP - General Internal Medicine 07/08/23 documented as of this encounter
--- OUTSIDE RECORDS SUMMARY | 2025-02-02 13:40 | XMS_ITS | Patient Health Record ---
Author Organization [facility] Address [address] [place] [address] Care Team Providers Care Furnace Converter Name Role Phone Jaya Sinha MD Primary Care Provider Unavail able Kiel Ward Unavailable [phone] Reason For Referral No Information Medications Medication SIG (Take, Route, Frequency, Duration) Notes Start Date End Date Status Aspirin Active HumuLIN N 100 UNIT/ML 20 units Subcutane ous daily Active Extra Depth Orthopedic Shoes (1 Pair) with Customized Heat Molded Multidensity Innersoles (3 Pair) as directed Dx: IDDM/Polyneuropathy (E10.42), Hammertoe Foot Deformity (M20.41,M20.42), Preulcerative Skin Lesion(s) (L85.1) 03/07/2016 Active Lactic Acid E 10-3500 %-UNT/30GM as directed Externally Apply twice a day to feet; Duration: 30 days 06/06/2016 Active HumuLIN N KwikPen 100 UNIT/ML Subcutaneous; Duration: 30 A ctive Viagra 100 MG Orally Once a day Active BD Pen Needle Short U/F 31G X 8 MM ; Duration: 30 Active Omeprazole 20 MG 1 tablet Orally Once a day Active Lovastatin 10 MG 1 tablet with a meal Orally Once a day Active metFORMIN HCl 1000 MG Orally Twice a day Active Immunizations Vaccine Route Administration Date Status Comme nts Pneumococcal Unknown 03/22/2015 Administered Social History Tobacco Use: Social History Observation Description Date Details (start date - stop date) Never Smoker NA - NA Tobacco Use/Smoking Question Answer Notes Are you a: nonsmoker Additional Findings: Tobacco Non-User Current no n-smoker Alcohol Screen Question Answer Notes Did you have a drink contain ing alcohol in the past year? Yes How often did you have a dri nk containing alcohol in the past year? 2 to 4 times a month (2 points) Points 2 Interpretation Negative Tobacco use other than smoking: Question Answer Notes Are you an other tobacco user? Yes Problems Problem Type SNOMED Code ICD Code Onset Dates Problem Status W/U Status Risk Notes Problem Polyneuropathy due to diabetes mellitus type I (263103004) Type 1 diabetes mellitus with diabetic polyneuropathy (E10.42) Active confirmed Plan Of Treatment Pending Test Test Name Order Date Hemoglobin A1c 06/16/2014 86116-[id number] NAIL, 6 OR MORE 09/15/2014 22003-IPMMGFU NAIL, 6 OR MORE 12/08/2014 61884-[id number] NAIL, 6 OR MORE 03/30/2015 44059-LPXKXOP NAIL, 6 OR MORE 12/07/2015 [id number] NAIL, 6 OR MORE 03/07/2016 43886-GOQUSHW NAIL, 6 OR MORE 06/16/2014 26392-[id number] NAIL, 6 OR MORE 06/06/2016 73326-WJQC SKIN LESIONS, 2 TO 4 03/07/19 17 12579-GVCL SKIN LESIONS, 2 TO 4 06/07/19 17 39964-HOZE SKIN LESIONS, 2 TO 4 12/07/19 16 68331-OVDS SKIN LESIONS, 2 TO 4 03/30/19 16 31649-UWQV SKIN LESIONS, 2 TO 4 12/09/19 15 21060-WXSO SKIN LESIONS, 2 TO 4 09/16/19 15 17651-KWTA SKIN LESIONS, 2 TO 4 06/17/19 15 Insurance Providers Payer Name Payer Address Payer Phone Subscriber Number Group Number Insured Name Patient Relationship to Insured Coverage Start Date Coverage End Date [facility] Blue [facility] [address] [place] [address] [phone] [id number] Rico Murphy Spouse - patient is the spouse of the insured Medical (General) History Medical History History ICD Code Diabetes mellitus Hypercholesterolemia Impotence Reflux Surgical History Surgery Date(Month/Year) corneal transplant appendectomy Graft on Right Eye
--- OUTSIDE RECORDS SUMMARY | 2025-02-02 13:40 | XMS_ITS | Clinical Summary ---
Author Organization [facility] Address [address] [address] Phone Care Team Providers Care Infection Control Specialist Name Role Phone Pcp, Not Required Primary Care Provider Unavaila ble Allergies No known active allergies Medications * This document contains information received from the source organization and may not represent a complete record from that organization. amLODIPine (NORVASC) 5 MG tablet Take 5 mg by mouth. 4 Active brimonidine-elijah olol (COMBIGAN) 0.2-0.5 % ophthalmic solution instill 1 drop into left eye twice daily 5 Active calcitriol (ROCALTROL) 0.25 MCG capsule Take 0.25 mcg by mouth. 4 Active calcium carbonate 500 mg (200 mg elemental) chewable tablet Take 1 tablet by mouth. Active dorzolamide-elijah oloL (COSOPT) 22.3-6.8 mg/mL ophthalmic solution Active vancomycin 25 mg/mL Soln Place 1 drop into the left eye Every two hours. 4 mL 3 5 Active Additional Information Patient not taking.Reported on 10/21/2024 vancomycin 25 mg/mL Soln Place 1 drop into the left eye every 3 (three) hours. 8 mL 1 5 Active Additional Information Patient not taking.Reported on 10/21/2024 vancomycin 25 mg/mL Soln Place 1 drop into the left eye 4 (four) times a day. 6 mL 1 5 Active Additional Information Patient not taking.Reported on 10/21/2024 moxifloxacin (VIGAMOX) 0.5 % ophthalmic solution Place 1 drop into the left eye 4 (four) times a day. 3 mL 3 5 Active Additional Information Patient taking differently:1 drop Left Eye2 times daily, Reported on 10/21/2024 prednisoLONE acetate (PRED FORTE) 1 % ophthalmic suspension Use 1x daily in the right eye and 2x daily in the left eye 5 mL 2 Active Social History Tobacco Use Types Packs/Day Years Used Date Smoking Tobacco: Some Days Cigarettes Tobacco Cessation:Ready to Q uit: Not Asked; Counseling Given: Not Answered Alcohol Use Standard Drinks/Week Comments Never 0 (1 standard drink = 0.6 oz pur e alcohol) Education Answer Date Recorded Are you interested in more education? Not on max e 07/09/2024 Are you concerned about learning? Not on file 07/09/2024 No 07/09/2024 No 07/09/2024 Food Answer Date Recorded Within the past 6 months we worried whether our food would run out before we got money to buy more. Never True 07/08/2024 Within the past 6 months the food we bought just didn't last and we didn't have enough money to get more. Never True Residential Stability Answer Date Recor ded What is your housing situation today? I have onofre sing 07/08/2024 How many times have you move d in the past 12 months? Zero (I did not move) 07/08/2024 Paying for Meds Answer Date Recorded Do you have trouble paying for medicines? No 07/08/2024 Paying Utility Bills Answer Date Record ed Do you have trouble paying your heating or elect ricity bill? No 07/08/2024 Transportation Answer Date Recorded Has the lack of transportati on kept you from medical appointments or from getting medications? No 07/08/2024 Digital Access Answer Date Recorded No 07/08/2024 Yes 07/08/2024 Do you have reliable internet access at home? Ye s 07/08/2024 Do you have a device (e.g., phone, tablet, computer) with a working camera? Yes 07/08/2024 Intimate Partner Violence Answer Date R ecorded Are you denied basic needs s uch as food, clothing, or medical care? No 07/08/2024 In the past 12 months have y ou been in a relationship with a person who hurts, threatens, or tries to control you? No 07/08/2024 Are you denied basic needs s uch as food, clothing, or medical care? No 07/08/2024 In the past 12 months have y ou been in a relationship with a person who hurts, threatens, or tries to control you? No 07/08/2024 Sex and Gender Information Value Date Recorded Sex Assigned at Male 07/08/2024 8:20 PM EDT Legal Sex Male 8:00 PM EDT Gender Identity Male 07/08/2024 8:20 PM EDT Sexual Orientation Straight 07/08/2024 8: 20 PM EDT Last Filed Vital Signs Vital Sign Reading Time Taken Comments Blood Pressure 154/80 07/08/2024 8:14 PM EDT Pulse 88 07/08/2024 8:14 PM EDT Temperature 36.4 C (97.5 F) 07/08/2024 8:14 PM EDT Respiratory Rate 20 07/08/2024 8:14 PM EDT Oxygen Saturation 99% 07/08/2024 8:14 PM EDT Inhaled Oxygen Concentration - - Weight 103 kg (227 lb 1.2 oz) 07/08/2024 8:14 PM EDT Height 182.9 cm (6') 07/08/2024 8:14 PM EDT Body Mass Index 30.8 07/08/2024 8:14 PM EDT Plan of Treatment Health Maintenance Due Date Last Done Comments DEPRESSION SCREENING 1982 SMOKING Hx and SMOKELESS TOBACCO SCREENING 05/07/1983 HIV ONE-TIME SCREENING (18-65 YEARS) 1988 PNEUMOCOCCAL VACCINES (50+ years) (1 of 2 - PCV) 1989 COLOGUARD 05/07/2015 COLONOSCOPY 05/07/2015 COLORECTAL CANCER SCREENING 05/07/2015 FIT TEST 05/07/2015 FOBT 05/07/2015 SIGMOIDOSCOPY 05/07/2015 VIRTUAL COLONOSCOPY 05/07/2015 ZOSTER VACCINES (1 of 2) 2020 Adult Td,Tdap Booster 12/21/2022 12/21/2012, 001 INFLUENZA VACCINE (#1) 2024 COVID-19 VACCINE (1 - season) 2024 SCREENING FOR DIABETES 10/14/2027 , 09/15/2024, 08/11/2024, Additional history exists LIPID PANEL 08/11/2029 08/11/2024, 05/12/2024 RSV VACCINE (1 - 1-dose 75+ series) 2045 HEPATITIS C SCREENING Completed 09/03/2024, 025 HEPATITIS A VACCINES Aged Out No long er eligible based on patient's age to complete this topic HIB VACCINES Aged Out No longer eligi ble based on patient's age to complete this topic MENINGOCOCCAL VACCINES (ACWY) Aged Out No longer eligible based on patient's age to complete this topic MENINGOCOCCAL VACCINES (B) Aged Out N o longer eligible based on patient's age to complete this topic Medical Devices Not on file Insurance [facility] MEDICARE PART A & B [facility] MEDICARE PART A & B [facility] MEDICARE PART A & B [facility] MEDICARE PART A & [place] [address] [facility] MEDICARE PART A & B [facility] MEDICARE PART A & B Care Teams Infection Control Specialist Relationship Specialty Start Date End Date Pcp, Not Required PCP - General 07/08/24 Additional Source Comments The information contained in this document represents components of the legal health record. It is not the complete legal health record.[facility]
--- OUTSIDE RECORDS SUMMARY | 2025-02-02 13:40 | XMS_ITS | Encounter Summary ---
Author Organization [facility] Address [address] [place] [address] Phone Care Team Providers Care Rn Enterostomal Name Role Phone Pcp, Not Required Primary Care Provider Unavaila ble Encounter Details Date Type Department Care Team ([facility] st Contact Info) Description 07/08/2024 Ophth Exam [facility] [address] [place] [address] Adelfo Jaimes MD, MPH [address] [place] [address] [email or web address] Social History Tobacco Use Types Packs/Day Years Used Date Smoking Tobacco: Never Assessed Education Answer Date Recorded Are you interested [...] Orientation Straight 07/08/2024 8: 20 PM EDT documented as of this encounter Plan of Treatment Not on file documented as of this encounter Visit Diagnoses Not on filedocumented in this encounter Care Teams Rn Enterostomal Relationship Specialty Start Date End Date Pcp, Not Required PCP - General 07/08/24 documented as of this encounter Additional Source Comments The information contained in this document represents components of the legal health record. It is not the complete legal health record.[facility]
--- OUTSIDE RECORDS SUMMARY | 2025-02-02 13:40 | XMS_ITS | Clinical Summary ---
Author Organization [facility] Address [address] [place] [address] Phone Care Team Providers Care Trial Examiner Name Role Phone Lorne Bone MD Primary Care Provider Allergies No known active allergies Medications amLODIPine (NORVASC) 5 mg tablet Take 1 tablet (5 mg total) by mouth 1 (one) time each day. Active sodium zirconium cyclosilicate (Lokelma) 5 gram packet Take 5 g by mouth 1 (one) time each day. Active calcium carbonate 250 mg/mL (100 mg/mL elemental calcium) suspension Take 2 mL (500 mg total) by mouth 1 (one) time each day. Active B complex-vitamin C-folic acid (MARIA ANTONIA-MARIA EUGENIA) 1-60-300 mg-mg-mcg tablet Take 1 tablet by mouth 1 (one) time each day with breakfast. Active oxyCODONE (OXY-IR) 5 mg immediate release capsule Take 1 capsule (5 mg total) by mouth every 6 (six) hours if needed for severe pain. 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 2024 HTN (hypertension) 2024 Obstructive sleep apnea syndrome 2024 ESRD (end stage renal disease) 04/27/2024 Surgical History Surgery Date Site/Laterality Comments OTHER SURGICAL HISTORY EYE SURGERY x4 VEIN SURGERY Left arm APPENDECTOMY AV FISTULA PLACEMENT Left Medical History Medical History Date Comments Type II or unspecified type diabetes mellitus without mention of complication, uncontrolled 12/19/2004 DX:Type II or unspecified t ype diabetes mellitus without mention of complication, uncontrolled Type II or unspecified type diabetes mellitus without mention of complication, not stated as uncontrolled 12/19/2004 DX:Type II or unspecified ty pe diabetes mellitus without mention of complication, not stated as uncontrolled Personal history of noncompl iance with medical treatment, presenting hazards to health 07/30/2005 DX:Personal history of nonco mpliance with medical treatment, presenting hazards to health Morbid obesity ([facility] V24, [facility] V28) 11/19/2005 DX:Morbid obesity ([facility]) Hypertension Hyperlipidemia Sleep apnea 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 Chronic kidney disease Dyalisis, M<W< F [place] Family History Medical History Relation Name Comments Diabetes Mother Relation Name Status Comments Mother Social History Tobacco Use Types Packs/Day Years Used Date Smoking Tobacco: Never Assessed Tobacco Cessation:Counseling Given: Not Answered Alcohol Use Standard Drinks/Week Comments No 0 (1 standard drink = 0.6 oz pur e alcohol) Interpersonal Safety Answer Date Record ed Physical Abuse Unrecognized value 2024 Verbal Abuse Unrecognized value 2024 Comments Unknown Sex and Gender Information Value Date Recorded Sex Assigned at Female 2024 10:46 AM EDT Legal Sex Male 11:50 AM EST Gender Identity Male 04/28/2024 9:44 AM EDT Sexual Orientation Straight 2024 10 :46 AM EDT Last Filed Vital Signs Vital Sign Reading Time Taken Comments Blood Pressure 148/79 2024 2:52 PM EDT Pulse 79 2024 2:52 PM EDT Temperature 36.1 C (97 F) 2024 2:31 PM EDT Respiratory Rate 20 2024 2:31 PM EDT Oxygen Saturation 100% 2024 2:52 PM EDT Inhaled Oxygen Concentration - - Weight 105 kg (231 lb 7.7 oz) 04/30/2024 10:00 A M EDT 231 pd Height 182.9 cm (6') 04/30/2024 10:00 AM EDT Body Mass Index 31.39 04/30/2024 10:00 AM EDT Plan of Treatment Health Maintenance Due Date Last Done Comments Breast Cancer Screening 1970 Colorectal Cancer Screening: Colonoscopy 1970 Diabetes: Annual Foot Exam 1980 Diabetes: Annual Retina Eye Exam 1980 Hepatitis B Vaccines (1 of 3 - 19+ 3-dose series) 1989 Zoster Vaccines (1 of 2) 1989 Cervical Cancer Screening: Pap Smear 05/07/1991 RSV Immunization Adult Patients (1 - Risk 50-74 years 1-dose series) 2020 COVID-19 Vaccine (3 - Pfizer risk series) 01/14/2021 12/17/2020, 09/09/2020 Diabetes: Annual Urine Albumin-Creatinine Ratio (uACR) 09/02/2023 HIV Screening 09/02/2023 Hepatitis C Screening 09/02/2023 Social Influencers of Health Screening 09/02/2023 Diabetes: Blood Sugar Control Test (HGBA1C) 12/25/2023 06/24/2023, 06/24/2023 Depression Screening 02/11/2024 Influenza Vaccine (#1) 2024 11/26/2007 Diabetes: Annual GFR (Glomerular Filtration Rate) 2025 2024 Hypertension/CHF/CAD Annual BMP Blood Test 2025 2024 DTaP,Tdap,and Td Vaccines (5 - Td or Tdap) 08/20/2027 08/19/2017, 12/21/2012, 10/02/2000, Additional history exists Cholesterol Screening (Lipid Panel) 02/17/2029 02/18/2024 Pneumococcal Vaccine: 50+ Years Completed 06/10/2022, 08/31/2018, 02/25/2014 HIB Vaccines Aged Out No longer eligi ble based on patient's age to complete this topic HPV Vaccines Aged Out No longer eligi ble based on patient's age to complete this topic Hepatitis A Vaccines Aged Out No long er eligible based on patient's age to complete this topic IPV Vaccines Aged Out No longer eligi ble based on patient's age to complete this topic MMR Vaccines Aged Out No longer eligi ble based on patient's age to complete this topic Meningococcal ACWY Vaccine Aged Out N o longer eligible based on patient's age to complete this topic Meningococcal B Vaccine Aged Out No l onger eligible based on patient's age to complete this topic RSV Immunization Patients Under 20 months Aged Out No longer eligible based on patient's age to complete this topic Varicella Vaccines Aged Out No longer eligible based on patient's age to complete this topic Medical Devices Implanted Type Area Supervisor Finish End Device Identifier Shelf Expiration Date Model / Serial / Lot Left Av Fistula Dialysis Catheters Left: Arm [employer] Hemostat 4x8in Abs Ster Surgicel - Sn/A - [id number] Implanted:Qty: 1 on 2024 by Roberto Leija MD at [facility] Hemostasis Left: Arm [employer] 1952 / N/A / N/A Kit Surgiflo W 2000 Units Ster Lyo - Sn/A - [id number] Implanted:Qty: 1 on 2024 by Roberto Leija MD at [facility] Hemostasis Left: Arm [employer] [id number] / N/A / N/A Procedures Procedure Name Priority Date/Time Associated Diagnosis Comments BASIC METABOLIC PANEL Routine 2024 11:12 AM EDT from Last 3 Months or Most Recently Relevant to Health Maintenance Results * (ABNORMAL) Basic metabolic panel (2024 11:12 AM EDT) Sodium 139 133 - 145 mmol/L LAB CHEMISTRY METHOD 2024 12:20 PM [facility] Potassium 4.7 3.5 - 5.5 mmol/L LAB CHEMISTRY METHOD 2024 12:20 PM [facility] Chloride 104 96 - 110 mmol/L LAB CHEMISTRY METHOD 2024 12:20 PM [facility] CO2 29 21 - 32 mmol/L LAB CHEMISTRY METHOD 2024 12:20 PM [facility] Anion Gap 6 3 - 11 LAB CHEMISTRY METHOD 2024 12:20 PM [facility] Glucose 93 70 - 100 mg/dL LAB CHEMISTRY METHOD 2024 12:20 PM [facility] BUN 29(H) 5 - 25 mg/dL LAB CHEMISTRY METHOD 2024 12:20 PM EDT [facility] Creatinine 7.34(H) 0.50 - 1.30 mg/dL LAB CHEMISTRY METHOD 2024 12:20 PM EDT [facility] Comment:Results verified by repeat testing eGFR 6(L) >=60 mL/min/1. 73m2 LAB CHEMISTRY METHOD 2024 12:20 PM EDT [facility] Comment:Calculation based on the Chronic Kidney Disease Epidemiology Collaboration (CKD-EPI) equation refit without adjustment for race. BUN/Creatinine Ratio 4.0 LAB CHEMISTRY METHOD 2024 12:20 PM EDT [facility] Calcium 9.1 8.5 - 10.5 mg/dL LAB CHEMISTRY METHOD 2024 12:20 PM EDT [facility] Blood Venous blood specimen / Unknown Venipuncture / Unknown 2024 11:12 AM EDT 2024 11:23 AM EDT Roberto Leija MD LAB BLOOD ORDERABLES Final Result [facility] [address] [place] [address], from Last 3 Months or Most Recently Relevant to Health Maintenance Insurance [facility] PUBLIC PLANS [place]ELISSA [id number] Care Teams Trial Examiner Relationship Specialty Start Date End Date [place], Lorne, MD [address] [place] [address] PCP - General Internal Medicine 04/28/24
--- OUTSIDE RECORDS SUMMARY | 2025-02-02 13:40 | XMS_ITS | Encounter Summary ---
Author Organization [facility]. Address [address] [address] Phone Care Team Providers Care Laundry Folder Name Role Phone Lorne Bone MD Primary Care Provider [phone] Encounter Details Date Type Department Care Team (Late st Contact Info) Description 02/01/2025 Treatment [facility]. [address] [address] Kari Frias MD [address] [address] End stage renal disease; Dependence [...] Dialysis Note - Kari Frias MD - 02/01/2025 12:00 AM EST BASIC NOTE Patient: Reji Murphy : 1970 Note Author: KARI FRIAS MD Service Date: 02/01/2025 This patient was personally seen [id number] for a basic visit as part of routine monthly dialysis care for end stage renal disease. Attending Senior Sharepoint Architect: KARI FRIAS Dialysis Location: [facility] Schedule: Shift: 1 HOME MEDICATIONS Current [...] 12/24/24 stable 12/27/24 doing well 01/12/25 stable 02/01/25 doing ok Signed by: KARI FRIAS MD on 02/01/2025 at 11:56:42 PM Transcribed by: KARI FRIAS MD on 02/01/2025 at 11:56:42 PM documented in this encounter Plan of Treatment Not on file documented as of this encounter Visit Diagnoses Diagnosis End stage renal disease Dependence on renal dialysis documented in this encounter Care Teams Laundry Folder Relationship Specialty Start Date End Date Lorne Bone MD [address] [place] [address] PCP - General Internal Medicine 07/08/23 documented as of this encounter
[2025-02-02 13:44] VITALS: BP 146/67; PULSE 87; RESP 16; TEMP 36.6; O2SAT 98
== END 2025-02-02 13:44 | disposition home or self-care (01) ==
PROVIDERS: Registered Nurse Emergency; Emergency Provider Emergency Medicine
DX: R79.89 Other specified abnormal findings of blood chemistry (principal); E11.22 Type 2 diabetes mellitus with diabetic chronic kidney disease; I12.0 Hypertensive chronic kidney disease with stage 5 chronic kidney disease or end stage renal disease; N18.6 End stage renal disease; D63.1 Anemia in chronic kidney disease; Z99.2 Dependence on renal dialysis; Z79.4 Long term (current) use of insulin; Z79.899 Other long term (current) drug therapy
CPT/HCPCS: 36415; 80053; 83735; 85025; 86850; 86900; 86901; 99282; 99283